=== PATIENT | male | born 1955 | race Caucasian/White ===

== ENCOUNTER 2017-05-21 06:14 | Day surgery (SDC) | payer OTHER ==
[~2017-05-21] VITALS: Ht 180.3 cm; Wt 93.2 kg
[2017-05-21] VITALS (8 sets, daily range): BP systolic 98–152; BP diastolic 54–84; PULSE 69–81; RESP 18–20; TEMP 97.8–97.9; O2SAT 92–97
[~2017-05-21 06:14] MED LIST: ASPI81 PO; ATEN1TAB73 PO; NIAS10004 PO; OXYC-360 PO; ZOCO40TA PO
[2017-05-21] MEDS ORDERED: OXYC1TAB63 PO (06:57)
[2017-05-21] MEDS ORDERED: ZOFR4TAB PO (06:57)
[2017-05-21] MEDS ORDERED: DOCU100C15 PO (06:57)
[2017-05-21] MEDS ORDERED: LISI10TA3 PO (06:57)
[2017-05-21] MEDS ORDERED: ATOR40TA16 PO (06:57)
[2017-05-21] MEDS ORDERED: ASPI81CH6 CHEW (06:57)
[2017-05-21] MEDS ORDERED: RANI150T PO (06:57)
[2017-05-21] MEDS ORDERED: SODIUM CHLORIDE 2 ML FLUSH PRN IV FLUSH (07:45)
[2017-05-21] MEDS ORDERED: SODIUM CHLOR 0.9% 1000 ML IV SCH (07:45)
[2017-05-21] MEDS ORDERED: LIDOCAINE HCL 1% 20 ML VIAL ONE (07:50)
[2017-05-21] MEDS ORDERED: MIDAZOLAM HCL 2 MG/2 ML VIAL ONE (07:58)
[2017-05-21] MEDS ORDERED: SODIUM CHLORIDE 2 ML FLUSH BID IV FLUSH SCH (09:00)
[2017-05-21] MEDS ORDERED: oxyCODONE/ACETAMINOPHEN 5 MG/325 MG TAB PO PRN (09:15)
--- NOTE | 2017-05-21 09:23 | PD.RAD ---
Post CT Procedure Prog Note Pre Procedure Diagnosis: (1) Bone metastases (2) Mass of left lung Post Procedure Diagnosis: (1) Bone metastases (2) Mass of left lung Procedure Date: May 21, 2017 Supervising Radiologist: Karsten Ames Anesthesia: Local, Conscious Sedation Plan of Activity Patient to Unit: ROPU Patient Condition: Good See PACS Report for procedural detail/treatment Biopsy Imaging Guidance: CT Side: Left Biopsy Procedure: Bone, Lung Site: Left ilium left lung mass Specimen: Core Biopsy, Fine Needle Aspirate Fluid Description: Bloody Findings: Karsten Ames MD May 21, 2017 09:23
--- NOTE | 2017-05-21 09:45 | RADRPT ---
EXAM DATE/TIME: 05/21/2017 08:29 [facility] COMPARISON: No previous studies available for comparison. INDICATIONS : Left lung mass. SEDATION TIME: 45 minutes BIOPSY SITE: Left MEDICATION(S): 1.) 4 mg midazolam (Versed) IV 2.) 200 mcg fentanyl (Sublimaze) IV DEVICE(S): 1.) 18 gauge Temno core biopsy needle MEDICAL HISTORY : None. SURGICAL HISTORY : None. ENCOUNTER: Initial ACUITY: 1 day PAIN SCORE: 5/10 LOCATION: Left chest A total of two core specimen(s) were obtained and sent to the laboratory for pathologic evaluation. PROCEDURE: 1. CT guided lung biopsy. 2. Conscious sedation with continuous EKG and oximetry monitoring. 3. EKG and oximetry remained stable throughout the procedure. Prior to the procedure informed consent was obtained. Any appropriate prior imaging studies were rev iewed. Using automated exposure control and adjustment of the mA and/or kV according to patient size, radiation dose was kept as low as reasonably achievable to obtain optimal diagnostic quality images. DICOM format image data is available electronically for review and comparison. The site was prepped in a sterile fashion. Full sterile technique was used, including cap, mask, heather rile gloves and gown and a large sterile sheet. Hand hygiene and 2% chlorhexidine and/or betadine/al cohol prep was utilized per protocol for cutaneous antisepsis. The skin and subcutaneous tissues wer e infiltrated with local anesthetic solution. With CT guidance the previously identified target was localized. Biopsy was performed using the presc ribed needle as above. Adequate hemostasis was obtained with compression at the puncture site. Follow-up CT scan reveals no pneumothorax. Conscious sedation was performed with the prescribed dosages and duration as above in the presence of an independent trained radiology nurse to assist in the monitoring of the patient. EKG and oximetry remained stable throughout the procedure. The patient tolerated the procedure well and there were no complications. The patient was sent to Radiology Outpatient Unit in stable condition. CONCLUSION: Uncomplicated CT guided biopsy of left lower lobe lung mass. Karsten Ames MD on May 21, 2017 at 9:42 Board Certified Radiologist. This report was verified electronically.
--- NOTE | 2017-05-21 09:45 | RADRPT ---
EXAM DATE/TIME: 05/21/2017 08:29 [facility] COMPARISON: No previous studies available for comparison. INDICATIONS : Left iliac lesion. SEDATION TIME: 45 minutes BIOPSY SITE: Left MEDICATION(S): 1.) 4 mg midazolam (Versed) IV 2.) 200 mcg fentanyl (Sublimaze) DEVICE(S): 1.) Bone biopsy needle 10 MEDICAL HISTORY : None. SURGICAL HISTORY : None. ENCOUNTER: Initial ACUITY: 1 day PAIN SCORE: 0/10 LOCATION: Left pelvis A total of two core specimen(s) were obtained and sent to the laboratory for pathologic evaluation. PROCEDURE: 1. CT guided pelvic biopsy. 2. Conscious sedation with continuous EKG and oximetry monitoring. 3. EKG and oximetry remained stable throughout the procedure. Prior to the procedure informed consent was obtained. Any appropriate prior imaging studies were rev iewed. Using automated exposure control and adjustment of the mA and/or kV according to patient size, radiat ion dose was kept as low as reasonably achievable to obtain optimal diagnostic quality images. DICOM format image data is available electronically for review and comparison. The site was prepped in a sterile fashion. Full sterile technique was used, including cap, mask, heather rile gloves and gown and a large sterile sheet. Hand hygiene and 2% chlorhexidine and/or betadine/al cohol prep was utilized per protocol for cutaneous antisepsis. The skin and subcutaneous tissues wer e infiltrated with local anesthetic solution. With CT guidance the previously identified target was localized. Biopsy was performed using the presc ribed needle as above. Adequate hemostasis was obtained with compression at the puncture site. Follow-up CT scan reveals no hemorrhage. The patient tolerated the procedure well and there were no complications. The patient was returned to the Radiology Outpatient Unit in stable condition. CONCLUSION: Uncomplicated CT guided biopsy of the left ilium. Karsten Ames MD on May 21, 2017 at 9:42 Board Certified Radiologist. This report was verified electronically.
--- NOTE | 2017-05-21 10:18 | RADRPT ---
EXAM DATE/TIME: 05/21/2017 09:24 [facility] COMPARISON: CT NEEDLE BIOPSY LUNG, LEFT, May 21, 2017, 8:29. INDICATIONS : Post left side chest biopsy. MEDICAL HISTORY : None. SURGICAL HISTORY : CABG. ENCOUNTER: Initial ACUITY: 1 day PAIN SCORE: 0/10 LOCATION: Bilateral chest FINDINGS: Single expiratory view of the chest was performed. No evidence for pneumothorax status post left lung biopsy. Redemonstration of focal airspace consolidation in the left lung base. Cardiomediastinal con tours are within normal limits with postsurgical features noted. Expansile mixed lesion involving a p osterior right rib is not well demonstrated on this radiograph. CONCLUSION: 1. No significant pneumothorax status post left lung mass biopsy. Nakul Walker MD on May 21, 2017 at 10:12 Board Certified Radiologist. This report was verified electronically.
== END 2017-05-21 13:17 | disposition home or self-care (01) ==
LOC: HRAD 06:14 → HRIP 06:15 → HRAD 13:17
PROVIDERS: ATTEND Family Medicine
DX: C79.51 Secondary malignant neoplasm of bone (principal); C34.90 Malignant neoplasm of unspecified part of unspecified bronchus or lung
CPT/HCPCS: 20220; 32405; 71045; 77012; 88305; 88341; 88342; 99152; 99153; C1830; J2250; J3010; J7030

== ENCOUNTER 2017-06-26 07:44 | Day surgery (SDC) | payer OTHER ==
[~2017-06-26 07:44] MED LIST changes: -ASPI81 PO; +ASPI81CH6 CHEW; -ATEN1TAB73 PO; +ATOR40TA16 PO; +DOCU100C15 PO; +LISI10TA3 PO; -NIAS10004 PO; -OXYC-360 PO; +OXYC1TAB63 PO; +RANI150T PO; -ZOCO40TA PO; +ZOFR4TAB PO
[2017-06-26 08:19] VITALS: BP 81/64; PULSE 85; RESP 18; TEMP 97.3; O2SAT 93
[2017-06-26 09:15] VITALS: BP 88/60; PULSE 74; RESP 20; TEMP 97.8; O2SAT 92
--- NOTE | 2017-06-26 09:24 | RADRPT ---
EXAM DATE/TIME: 06/26/2017 09:07 [facility] COMPARISON: CHEST EXPIRATION ONLY, May 21, 2017, 9:24. INDICATIONS : Status post left thoracentesis MEDICAL HISTORY : Hypercholesterolemia. SURGICAL HISTORY : CABG. ENCOUNTER: Initial ACUITY: 1 day PAIN SCORE: 0/10 LOCATION: Bilateral chest FINDINGS: A single portable frontal view of the chest shows a moderate-sized left pleural effusion. No effusion on the right. Consolidation involving the left lung. Right lung is clear. Heart is mildly enlarged. Median sternotomy wires and coronary markers noted. No pneumothorax seen. CONCLUSION: 1. Moderate-sized left effusion despite left thoracentesis. 2. No pneumothorax. 3. Consolidation involving the left lung. Diaz Weeks Jr., MD on June 26, 2017 at 9:21 Board Certified Radiologist. This report was verified electronically.
[2017-06-26 09:30] VITALS: BP 92/62; PULSE 72; RESP 20; O2SAT 95
[2017-06-26 09:45] VITALS: BP 95/63; PULSE 70; RESP 20; O2SAT 95
--- NOTE | 2017-06-26 11:22 | RADRPT ---
EXAM DATE/TIME: 06/26/2017 08:13 [facility] COMPARISON: No previous studies available for comparison. INDICATIONS : Left pleural effusion. MEDICAL HISTORY : Hypercholesterolemia. Hypertension. Gastroesophageal reflux disease. Left pleural effusion. SURGICAL HISTORY : Tonsillectomy. CABG ENCOUNTER: Initial ACUITY: 1 day PAIN SCORE: 3/10 LOCATION: Left chest FLUID: Total volume of 2400 cc of clear, red fluid was removed. Fluid was discarded. Thoracentesis was therapeutic only. TECHNIQUE: 1. Ultrasound guidance for thoracentesis. 2. Thoracentesis. The risks, benefits, and alternatives to ultrasound guided thoracentesis were explained to the patien t in lay simple terms, including the risk of bleeding and infection. Written and verbal informed con sent was obtained. Appropriate area for thoracentesis was marked under ultrasound guidance with the patient in the uprig ht position. Overlying skin was prepped and draped in the usual sterile fashion and with local anest hetic, a dermatotomy was made with an 11 blade scalpel. A 6 Nigerian thoracentesis catheter was placed in the pleural space and fluid was removed. Catheter was then removed and a sterile dressing applie d. There were no immediate complications. The patient tolerated the procedure well and the left the ultrasound suite in stable condition. Chest radiograph is to be obtained. CONCLUSION: Uncomplicated ultrasound guided thoracentesis. Nakul Walker MD on June 26, 2017 at 11:19 Board Certified Radiologist. This report was verified electronically.
== END 2017-06-26 12:30 | disposition home or self-care (01) ==
LOC: HRAD 07:44 → HRIP 07:45 → HRAD 12:30
PROVIDERS: ATTEND Internal Medicine Hematology & Oncology
DX: J90 Pleural effusion, not elsewhere classified (principal); C34.32 Malignant neoplasm of lower lobe, left bronchus or lung; E78.00 Pure hypercholesterolemia, unspecified; I10 Essential (primary) hypertension; K21.9 Gastro-esophageal reflux disease without esophagitis; Z95.1 Presence of aortocoronary bypass graft
CPT/HCPCS: 32555; 71045; C1729

== ENCOUNTER 2017-07-26 15:40 | Inpatient (IN) | payer OTHER ==
[~2017-07-26] VITALS: Ht 180.3 cm; Wt 83.7 kg
[2017-07-26 15:44] VITALS: BP 103/69; PULSE 106; RESP 18; TEMP 98.8; O2SAT 92
[2017-07-26 15:58] VITALS: O2SAT 92
[2017-07-26] MEDS ORDERED: PROM25TA10 PO (15:59)
[2017-07-26] MEDS ORDERED: DABR75CA PO (15:59)
[2017-07-26] MEDS ORDERED: MORP1TAB25 PO (15:59)
[2017-07-26] MEDS ORDERED: OXYC-395 PO (15:59)
[2017-07-26] MEDS ORDERED: TRAM2TAB (15:59)
[2017-07-26 16:05] VITALS: BP 106/71; PULSE 101; RESP 15; TEMP 102.3; O2SAT 96
[2017-07-26] MEDS ORDERED: SODIUM CHLOR 0.9% 1000 ML INJ 1,000 ML IV ONE ×2 (16:10→17:34)
[2017-07-26] MEDS ORDERED: ONDANSETRON HCL 4 MG/2 ML VIAL IV PUSH ONE (16:15)
[2017-07-26] MEDS ORDERED: ACETAMINOPHEN 325 MG TAB PO ONE (16:15)
[2017-07-26] MEDS ORDERED: SODIUM CHLORIDE 0.9% FLUSH 10 ML FLUSH IVF PRN (16:15)
--- NOTE | 2017-07-26 16:26 | PD ---
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 Patient states that his fevers been up to 104.3 and have not been completely resolved with Tylenol. Says he has nausea, vomiting, and cough the patient does have lung cancer and he is unsure if this is related to his cancer or new process. States that he has felt nauseous with vomiting for the last 5 weeks since starting his chemo medication. He denies hematochezia, melena, hematemesis. states that his oxygen is usually about 90% at home but today he dropped down to 80% on room air patient is not normally on oxygen at home. Patient says he had a CABG 10 years ago and a stress test about a year ago which was normal. Patient is not currently follow cardiology. Says he is due for a thoracentesis tomorrow however, because of his fever the recommended he come to the emergency department today for evaluation. His oncologist is Dr. Ross. Dr. Hand is his primary care physician. PFSH Past Medical History Asthma: No Blood Disorders: No Heart Rhythm Problems: Yes Cancer: No Cardiovascular Problems: Yes (cad) High Cholesterol: Yes Chemotherapy: No Chest Pain: Yes Congestive Heart Failure: No COPD: No Coronary Artery Disease: Yes Diabetes: No Endocrine: No GERD: Yes Glaucoma: No Genitourinary: No Hepatitis: No Hiatal Hernia: No Hypertension: Yes Immune Disorder: No Medical other: Yes (back and neck problems) Musculoskeletal: No Neurologic: No Psychiatric: No Reproductive: No Respiratory: No Immunizations Current: Yes Myocardial Infarction: No Radiation Therapy: No Sleep Apnea: No Thyroid Disease: No Ulcer: No Tetanus Vaccination: Unknown Influenza Vaccination: No Past Surgical History Abdominal Surgery: No AICD: No Appendectomy: No Arteriovenous Shunt: No Cardiac Surgery: Yes (quad vessel by-pass) Cholecystectomy: No Coronary Artery Bypass Graft: Yes Ear Surgery: No Endocrine Surgery: No Eye Surgery: No Genitourinary Surgery: No Gynecologic Surgery: No Insulin Pump: No Joint Replacement: No Oral Surgery: Yes (tonsillectomy) Pacemaker: No Thoracic Surgery: No Tonsillectomy: Yes Social History Alcohol Use: Yes (beer a couple of times per week) Tobacco Use: No Substance Use: No Allergies-Medications (Allergen,Severity, Reaction): Coded Allergies: diphenhydramine (Unverified Allergy, Severe, Anaphylaxis, 07/26/17) patient denies allergy Reported Meds & Prescriptions Reported Meds & Active Scripts Active Reported Phenergan (Promethazine HCl) 25 Mg Tablet 25 Mg PO Q6H PRN Morphine ER (Morphine Sulfate) 30 Mg Tab 30 Mg PO BID Oxycodone (Oxycodone HCl) 10 Mg Tab 10 Mg PO Q6H PRN Tafinlar (Dabrafenib) 75 Mg Cap 150 Mg PO BID Tafinlar (Dabrafenib) 75 Mg Cap 75 Mg PO BID Mekinist (Trametinib Dimethyl Sulfoxide) 2 Mg Tablet Zofran (Ondansetron HCl) 4 Mg Tab 4 Mg PO Q6HR PRN Docusate Sodium 100 Mg Cap 100 Mg PO BID PRN Atorvastatin (Atorvastatin Calcium) 40 Mg Tab 40 Mg PO HS Aspirin Low Dose (Aspirin) 81 Mg Chew 81 Mg CHEW HS Lisinopril 10 Mg Tab 10 Mg PO HS Ranitidine (Ranitidine HCl) 150 Mg Tab 150 Mg PO HS Review of Systems Except as stated in HPI: all other systems reviewed are Neg Physical Exam Narrative GENERAL: Well-developed, well-nourished in no apparent distress SKIN: Focused skin assessment warm/dry. HEAD: Atraumatic. Normocephalic. EYES: Pupils equal and round. No scleral icterus. No injection or drainage. ENT: No nasal bleeding or discharge. Mucous membranes pink and moist. NECK: Trachea midline. No JVD. No lymphadenopathy CARDIOVASCULAR: Regular rate and rhythm. No murmur appreciated. RESPIRATORY: No accessory muscle use. Clear to auscultation. Breath sounds equal bilaterally. GASTROINTESTINAL: Abdomen soft, non-tender, nondistended. Hepatic and splenic margins not palpable. MUSCULOSKELETAL: No obvious deformities. No clubbing. No cyanosis. No edema. Homans sign negative bilaterally NEUROLOGICAL: Awake and alert. No obvious cranial nerve deficits. Motor grossly within normal limits. Normal speech. PSYCHIATRIC: Appropriate mood and affect; insight and judgment normal. Data Data Last Documented VS Vital Signs Date Time Temp Pulse Resp B/P (MAP) Pulse Ox O2 Delivery O2 Flow Rate FiO2 07/26/17 18:07 98.3 87 18 106/67 (80) 98 Nasal Cannula 2.00 Orders Orders Complete Blood Count With Diff (07/26/17 16:10) Comprehensive Metabolic Panel (07/26/17 16:10) Act Partial Throm Time (Ptt) (07/26/17 16:10) Prothrombin Time / Inr (Pt) (07/26/17 16:10) Magnesium (Mg) (07/26/17 16:10) Ckmb (Isoenzyme) Profile (07/26/17 16:10) Troponin I (07/26/17 16:10) Urinalysis - C+S If Indicated (07/26/17 16:10) Influenzae A/B Antigen (07/26/17 16:10) Blood Culture (07/26/17 16:10) Electrocardiogram (07/26/17 16:10) Chest, Pa & Lat (07/26/17 16:10) Sepsis Workup Initiated (07/26/17 ) Lactic Acid Sepsis Protocol (07/26/17 16:10) Blood Glucose (07/26/17 16:10) Ecg Monitoring (07/26/17 16:10) Iv Access Insert/Monitor (07/26/17 16:10) Oximetry (07/26/17 16:10) Oxygen Administration (07/26/17 16:10) Acetaminophen (Tylenol) (07/26/17 16:15) Ondansetron Inj (Zofran Inj) (07/26/17 16:15) Sodium Chlor 0.9% 1000 Ml Inj (Ns 1000 M (07/26/17 16:10) Sodium Chloride 0.9% Flush (Ns Flush) (07/26/17 16:15) CKMB (07/26/17 16:24) CKMB% (07/26/17 16:24) Electrocardiogram (07/26/17 ) Sodium Chlor 0.9% 1000 Ml Inj (Ns 1000 M (07/26/17 17:34) Sodium Chlorid 0.9% 500 Ml Inj (Ns 500 M (07/26/17 17:45) Ct Thorax/ Chest Wo Iv Contras (07/26/17 ) Vancomycin Inj (Vancomycin Inj) (07/26/17 18:00) Cefepime Inj (Maxipime Inj) (07/26/17 18:00) Admit Order (Ed Use Only) (07/26/17 18:05) Diet Regular Basic (07/26/17 Dinner) Phosphorus (Po4) (07/26/17 16:24) Uric Acid (07/26/17 16:24) Labs Laboratory Tests Test 07/26/17 16:16 07/26/17 16:23 07/26/17 16:24 Urine Color DARK-YELLOW Urine Turbidity HAZY Urine pH 6.0 Urine Specific [place] 1.035 Urine Protein 100 mg/dL Urine Glucose (UA) NEG mg/dL Urine Ketones 10 mg/dL Urine Occult Blood SMALL Urine Nitrite NEG Urine Bilirubin NEG Urine Urobilinogen 8.0 MG/DL Urine Leukocyte Esterase NEG Urine RBC 30 /hpf Urine WBC 5 /hpf Urine Squamous Epithelial Cells 1 /hpf Urine Mucus MANY /lpf Microscopic Urinalysis Comment CULT NOT INDICATED Lactic Acid Level 2.1 mmol/L White Blood Count 3.7 TH/MM3 Red Blood Count 4.57 MIL/MM3 Hemoglobin 13.1 GM/DL Hematocrit 38.9 % Mean Corpuscular Volume 85.2 FL Mean Corpuscular Hemoglobin 28.6 PG Mean Corpuscular Hemoglobin Concent 33.6 % Red Cell Distribution Width 14.2 % Platelet Count 186 TH/MM3 Mean Platelet Volume 8.8 FL Neutrophils (%) (Auto) 74.8 % Lymphocytes (%) (Auto) 14.3 % Monocytes (%) (Auto) 10.2 % Eosinophils (%) (Auto) 0.0 % Basophils (%) (Auto) 0.7 % Neutrophils # (Auto) 2.8 TH/MM3 Lymphocytes # (Auto) 0.5 TH/MM3 Monocytes # (Auto) 0.4 TH/MM3 Eosinophils # (Auto) 0.0 TH/MM3 Basophils # (Auto) 0.0 TH/MM3 CBC Comment DIFF FINAL Differential Comment Prothrombin Time 11.7 SEC Prothromb Time International Ratio 1.2 RATIO Activated Partial Thromboplast Time 31.5 SEC Blood Urea Nitrogen 14 MG/DL Creatinine 1.11 MG/DL Random Glucose 147 MG/DL Total Protein 7.3 GM/DL Albumin 3.0 GM/DL Calcium Level 7.7 MG/DL Phosphorus Level 1.5 MG/DL Magnesium Level 2.1 MG/DL Uric Acid 3.0 MG/DL Alkaline Phosphatase 182 U/L Aspartate Amino Transf (AST/SGOT) 55 U/L Alanine Aminotransferase (ALT/SGPT) 28 U/L Total Bilirubin 0.6 MG/DL Sodium Level 137 MEQ/L Potassium Level 3.8 MEQ/L Chloride Level 101 MEQ/L Carbon Dioxide Level 26.3 MEQ/L Anion Gap 10 MEQ/L Estimat Glomerular Filtration Rate 68 ML/MIN Total Creatine Kinase 124 U/L Creatine Kinase MB 0.5 NG/ML Troponin I LESS THAN 0.02 NG/ML MDM Medical Decision Making Medical Screen Exam Complete: Yes Emergency Medical Condition: Yes Differential Diagnosis Neutropenic fever, influenza, pneumonia, sepsis Narrative Course 62-year-old male with history of metastatic adenocarcinoma number of the lung presents emergency room with concerns of fevers that have been up to 104.3. He is due to have a thoracentesis tomorrow however, because of his fever he was advised to come to the emergency department today for evaluation. Vital signs temperature 102.3, heart rate 101, blood pressure 106/71, SaO2 96% on 2 L/min. (initially 92% on room air) EKG shows sinus tachycardia at a rate of 100 without STEMI changes. minimal biphasic T waves in V2-3. Last Impressions Chest X-Ray 07/26/17 1610 Signed Impressions: Service Date/Time: July 16:21 - CONCLUSION: Atelectasis, infiltrate and/or scarring within the left lung base. Elevation of the left hemidiaphragm. Chay Mackay MD CBC & BMP Diagram 07/26/17 16:24 Total Protein 7.3, Albumin 3.0 L, Calcium Level 7.7 L, Magnesium Level 2.1, Alkaline Phosphatase 182 H, Aspartate Amino Transf (AST/SGOT) 55 H, Alanine Aminotransferase (ALT/SGPT) 28, Total Bilirubin 0.6 Lactic 2.1, negative cardiac enzymes, PT/INR/APTT 11.7/1.2/31.5 UA is not an obvious source for sepsis. Influenza negative. Sepsis protocol initiated- a total of 2500 cc normal saline IV bolus, 650 mg Tylenol, 4 mg Zofran administered Phosphorus and uric acid labs added for concern of possible tumor lysis syndrome. Uric acid 3.0, phosphorus 1.5 Review of the EMR. Previous chest x-ray dated June 26, 2017 demonstrated a large pleural effusion which required thoracentesis. It appears he also had a pelvic bone biopsy in May. I spoke with Dr. Ross, his oncologist to recommended 2 g cefepime and 1.25 g vancomycin. He also recommended a CT chest without contrast. He also recommended recommended blood cultures from port and periphery. Patient does not have a port. Blood cultures were drawn prior to interventions today. I spoke Dr. Tavarez who agreed to the admission. He requested I place the admission under Dr. More. CT chest and antibiotic administration pending as of admission. Sepsis Criteria SIRS Criteria (2 or more): Temp > 100.9 or < 96.8, Heart rate over 90 Diagnosis Primary Impression: Sepsis Qualified Codes: A41.9 - Sepsis, unspecified organism Admitting Information Admitting Physician Requests: Admit Condition: Stable Sally Monsalve Jul 26, 2017 16:26
--- NOTE | 2017-07-26 16:44 | RADRPT ---
EXAM DATE/TIME: 07/26/2017 16:21 [facility] COMPARISON: CT NEEDLE BIOPSY LUNG, LEFT, May 21, 2017, 8:29. US GUIDED THORACENTESIS LEFT, June 26, 2017 , 8:13. CHEST EXPIRATION ONLY, May 21, 2017, 9:24. INDICATIONS : Short of breath MEDICAL HISTORY : Hypercholesterolemia. SURGICAL HISTORY : CABG. ENCOUNTER: Initial ACUITY: 3 days PAIN SCORE: 3/10 LOCATION: Left chest FINDINGS: Atelectasis, infiltrate and/or scarring is noted within the left lung base. Median sternotomy wires a re noted status post cardiac surgery. The right lung is clear. No pulmonary edema is noted. There is elevation of the left hemidiaphragm. CONCLUSION: Atelectasis, infiltrate and/or scarring within the left lung base. Elevation of the left hemidiaphrag mMarlyn Mackay MD on July 26, 2017 at 16:39 Board Certified Radiologist. This report was verified electronically.
[2017-07-26 17:01] LABS: AUTOMATED NEUTROPHIL # 2.8 TH/MM3 (1.8-7.7); BASOPHIL % 0.7 % (0.0-2.0); HEMATOCRIT 38.9 % (39.0-51.0); HEMOGLOBIN 13.1 GM/DL (13.0-17.0); LYMPH % 14.3 % (9.0-44.0); LYMPHOCYTE # 0.5 TH/MM3 (1.0-4.8); MEAN CELL VOLUME 85.2 FL (80.0-100.0); MEAN CORPUSCULAR HEMOGLOBIN 28.6 PG (27.0-34.0); MEAN CORPUSCULAR HGB CONC 33.6 % (32.0-36.0); MEAN PLATELET VOLUME 8.8 FL (7.0-11.0); MONO % 10.2 % (0.0-8.0); MONOCYTE # 0.4 TH/MM3 (0-0.9); NEUT % 74.8 % (16.0-70.0); PLATELET COUNT 186 TH/MM3 (150-450); RED BLOOD COUNT 4.57 MIL/MM3 (4.50-5.90); RED CELL DISTRIBUTION WIDTH 14.2 % (11.6-17.2); WHITE BLOOD COUNT 3.7 TH/MM3 (4.0-11.0)
[2017-07-26 17:19] LABS: BILIRUBIN, URINE NEG (NEG); BLOOD, URINE SMALL (NEG); GLUCOSE,URINE NEG (NEG); KETONE, URINE 10 mg/dL (NEG); MUCUS URINE MANY /lpf (OCC); NITRITE,URINE NEG (NEG); SQUAMOUS EPITHELIAL CELL URINE 1 /hpf (0-5); URINE COLOR DARK-YELLOW (YELLW/STRAW); URINE LEUKOCYTE ESTERASE NEG (NEG)
[2017-07-26 17:24] LABS: ALT (GPT) 28 U/L (12-78); AST (GOT) 55 U/L (15-37); BICARBONATE 26.3 MEQ/L (21.0-32.0); BLOOD UREA NITROGEN 14 MG/DL (7-18); CALCIUM 7.7 MG/DL (8.5-10.1); CHLORIDE 101 MEQ/L (98-107); CREATININE 1.11 MG/DL (0.60-1.30); GLOMERULAR FILTRATION RATE 68 ML/MIN (>89); GLUCOSE,RANDOM 147 MG/DL (74-106); MAGNESIUM 2.1 MG/DL (1.5-2.5); SODIUM (NA) 137 MEQ/L (136-145)
[2017-07-26 17:27] LABS: INTERNATIONAL NORMALIZED RATIO 1.2 RATIO; PROTHROMBIN TIME - PATIENT 11.7 SEC (9.8-11.6)
[2017-07-26 17:28] LABS: LACTIC ACID SEPSIS PROTOCOL 2.1 mmol/L (0.4-2.0)
[2017-07-26 17:36] LABS: ALKALINE PHOSPHATASE 182 U/L (45-117); TOTAL BILIRUBIN ADULT 0.6 MG/DL (0.2-1.0); TOTAL PROTEIN 7.3 GM/DL (6.4-8.2); TROPONIN I LESS THAN 0.02 NG/ML (0.02-0.05)
[2017-07-26] MEDS ORDERED: SODIUM CHLORID 0.9% 500 ML INJ 500 ML IV ONE (17:45)
[2017-07-26 18:00] VITALS: BP 117/73; PULSE 108; RESP 17; TEMP 99.6; O2SAT 97
[2017-07-26] MEDS ORDERED: CEFEPIME INJ 2,000 MG in SODIUM CHLORIDE 0.9% INJ 100 ML IV ONE (18:00)
[2017-07-26] MEDS ORDERED: VANCOMYCIN INJ 1,250 MG in SODIUM CHLOR 0.9% 250 ML INJ 250 ML IV ONE (18:00)
[2017-07-26 18:07] VITALS: BP 106/67; PULSE 87; RESP 18; TEMP 98.3; O2SAT 98
[2017-07-26 18:28] LABS: PHOSPHORUS 1.5 MG/DL (2.5-4.9)
--- NOTE | 2017-07-26 19:09 | RADRPT ---
EXAM DATE/TIME: 07/26/2017 18:43 [facility] COMPARISON: CT NEEDLE BIOPSY LUNG, LEFT, May 21, 2017, 8:29. INDICATIONS : Shortness of breath with fever. RADIATION DOSE: 13.23 CTDIvol (mGy) MEDICAL HISTORY : Cardiovascular disease. Adenocarcinoma. SURGICAL HISTORY : CABG ENCOUNTER: Initial ACUITY: 1 day PAIN SCALE: 0/10 LOCATION: chest TECHNIQUE: Volumetric scanning of the chest was performed. Using automated exposure control and adjustment of t he mA and/or kV according to patient size, radiation dose was kept as low as reasonably achievable to obtain optimal diagnostic quality images. DICOM format image data is available electronically for r eview and comparison. Follow-up recommendations for detected pulmonary nodules are based at a minimum on nodule size and pa tient risk factors according to Fleischner Society Guidelines. FINDINGS: There is a large left pleural effusion. There is atelectasis of the left lung, mostly the lower lobe. Trace atelectasis dependently in the right lung base. No pneumothorax. No pathologic appearing adenopathy. Patient has had previous median sternotomy and C ABG. Mixed lytic and sclerotic changes are seen of the T8 and T12 vertebral bodies. There are expansile le sions of the right 10th and 11th ribs posteriorly. There is subchondral sclerotic area of the left hu meral head which may be AVN or a metastasis. CONCLUSION: 1. Large left pleural effusion with mild to moderate atelectasis of the left lower lobe. 2. Mild atelectasis right lung base. 3. Apparent bony metastatic disease, most conspicuous T8 and T12 vertebral bodies and posteriorly of the right 10th and 11th ribs. Possible metastatic lesion of the left humeral head. Alex Rader MD on July 26, 2017 at 19:02 Board Certified Radiologist. This report was verified electronically.
[2017-07-26] MEDS ORDERED: Vancomycin Consult Pharmacy 1 EA OTHER SCH (19:15)
[2017-07-26] MEDS ORDERED: NALOXONE HCL 0.4 MG/ML AMP IV PUSH PRN (19:15)
[2017-07-26] MEDS ORDERED: DOCUSATE SODIUM 100 MG CAP PO PRN (19:15)
[2017-07-26] MEDS ORDERED: MORPHINE SULFATE 2 MG/ML INJ IV PUSH PRN (19:15)
[2017-07-26] MEDS ORDERED: SENNOSIDES 8.6 MG TAB PO PRN (19:15)
[2017-07-26] MEDS ORDERED: LACTULOSE SYRUP 20 GM/30 ML CUP PO PRN (19:15)
[2017-07-26] MEDS ORDERED: ONDANSETRON HCL 4 MG/2 ML VIAL IVP PRN (19:15)
[2017-07-26] MEDS ORDERED: SODIUM CHLORIDE 0.9% FLUSH 10 ML FLUSH IV FLUSH PRN (19:15)
[2017-07-26] MEDS ORDERED: BISACODYL 10 MG SUPP RECTAL PRN (19:15)
[2017-07-26] MEDS ORDERED: MAGNESIUM HYDROXIDE SUSP 30 ML CUP PO PRN (19:15)
--- NOTE | 2017-07-26 19:26 | HHI.HP ---
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 Patient states that his fevers been up to 104.3 and have not been completely resolved with Tylenol. Says he has nausea, vomiting, and cough the patient does have lung cancer and he is unsure if this is related to his cancer or new process. States that he has felt nauseous with vomiting for the last 5 weeks since starting his chemo medication. He denies hematochezia, melena, hematemesis. states that his oxygen is usually about 90% at home but today he dropped down to 80% on room air patient is not normally on oxygen at home. Patient says he had a CABG 10 years ago and a stress test about a year ago which was normal. Patient is not currently follow cardiology. Says he is due for a thoracentesis tomorrow however, because of his fever the recommended he come to the emergency department today for evaluation. His oncologist is Dr. Ross who recommended CT thorax start cefipine and vancomycin sepsis work up . Review of Systems Constitutional: COMPLAINS OF: Fatigue, Fever, Chills Gastrointestinal: COMPLAINS OF: Nausea, Vomiting Past Family Social History Past Medical History hyperlipidemia-metastatic cancer lung,cad,hypertension djd Past Surgical History tonsil cabs Reported Medications Phenergan (Promethazine HCl) 25 Mg Tablet 25 Mg PO Q6H PRN Morphine ER (Morphine Sulfate) 30 Mg Tab 30 Mg PO BID Oxycodone (Oxycodone HCl) 10 Mg Tab 10 Mg PO Q6H PRN Tafinlar (Dabrafenib) 75 Mg Cap 150 Mg PO BID Tafinlar (Dabrafenib) 75 Mg Cap 75 Mg PO BID Mekinist (Trametinib Dimethyl Sulfoxide) 2 Mg Tablet Zofran (Ondansetron HCl) 4 Mg Tab 4 Mg PO Q6HR PRN Docusate Sodium 100 Mg Cap 100 Mg PO BID PRN Atorvastatin (Atorvastatin Calcium) 40 Mg Tab 40 Mg PO HS Aspirin Low Dose (Aspirin) 81 Mg Chew 81 Mg CHEW HS Lisinopril 10 Mg Tab 10 Mg PO HS Ranitidine (Ranitidine HCl) 150 Mg Tab 150 Mg PO HS Allergies: Coded Allergies: diphenhydramine (Unverified Allergy, Severe, Anaphylaxis, 07/26/17) patient denies allergy Social History current NS ND Physical Exam Vital Signs Vital Signs Date Time Temp Pulse Resp B/P (MAP) Pulse Ox O2 Delivery O2 Flow Rate FiO2 07/26/17 18:07 98.3 87 18 106/67 (80) 98 Nasal Cannula 2.00 07/26/17 18:00 99.6 108 17 117/73 (88) 97 Nasal Cannula 2.00 07/26/17 16:53 Nasal Cannula 2.00 07/26/17 16:05 102.3 101 15 106/71 (83) 96 Nasal Cannula 2.00 07/26/17 15:58 92 Room Air 07/26/17 15:44 98.8 106 18 103/69 (80) 92 Physical Exam GENERAL: This is a well-nourished, well-developed patient, in no apparent distress. SKIN: No rashes, ecchymoses or lesions. Cool and dry. HEAD: Atraumatic. Normocephalic. No temporal or scalp tenderness. EYES: Pupils equal round and reactive. Extraocular motions intact. No scleral icterus. No injection or drainage. ENT: Nose without bleeding, purulent drainage or septal hematoma. Throat without erythema, tonsillar hypertrophy or exudate. Uvula midline. Airway patent. NECK: Trachea midline. No JVD or lymphadenopathy. Supple, nontender, no meningeal signs. CARDIOVASCULAR: Regular rate and rhythm without murmurs, gallops, or rubs. RESPIRATORY: Decrease breath sounds rales left lower lung GASTROINTESTINAL: Abdomen soft, non-tender, nondistended. No hepato-splenomegaly , or palpable masses. No guarding. MUSCULOSKELETAL: Extremities without clubbing, cyanosis, or edema. No joint tenderness, effusion, or edema noted. No calf tenderness. Negative Homans sign bilaterally. NEUROLOGICAL: Awake and alert. Cranial nerves II through XII intact. Motor and sensory grossly within normal limits. Five out of 5 muscle strength in all muscle groups. Normal speech. Laboratory Laboratory Tests Test 07/26/17 16:16 07/26/17 16:23 07/26/17 16:24 Urine Color DARK-YELLOW Urine Turbidity HAZY Urine pH 6.0 Urine Specific [place] 1.035 Urine Protein 100 Urine Glucose (UA) NEG Urine Ketones 10 Urine Occult Blood SMALL Urine Nitrite NEG Urine Bilirubin NEG Urine Urobilinogen 8.0 Urine Leukocyte Esterase NEG Urine RBC 30 Urine WBC 5 Urine Squamous Epithelial Cells 1 Urine Mucus MANY Microscopic Urinalysis Comment CULT NOT INDICATED Lactic Acid Level 2.1 White Blood Count 3.7 Red Blood Count 4.57 Hemoglobin 13.1 Hematocrit 38.9 Mean Corpuscular Volume 85.2 Mean Corpuscular Hemoglobin 28.6 Mean Corpuscular Hemoglobin Concent 33.6 Red Cell Distribution Width 14.2 Platelet Count 186 Mean Platelet Volume 8.8 Neutrophils (%) (Auto) 74.8 Lymphocytes (%) (Auto) 14.3 Monocytes (%) (Auto) 10.2 Eosinophils (%) (Auto) 0.0 Basophils (%) (Auto) 0.7 Neutrophils # (Auto) 2.8 Lymphocytes # (Auto) 0.5 Monocytes # (Auto) 0.4 Eosinophils # (Auto) 0.0 Basophils # (Auto) 0.0 CBC Comment DIFF FINAL Differential Comment Prothrombin Time 11.7 Prothromb Time International Ratio 1.2 Activated Partial Thromboplast Time 31.5 Blood Urea Nitrogen 14 Creatinine 1.11 Random Glucose 147 Total Protein 7.3 Albumin 3.0 Calcium Level 7.7 Phosphorus Level 1.5 Magnesium Level 2.1 Uric Acid 3.0 Alkaline Phosphatase 182 Aspartate Amino Transf (AST/SGOT) 55 Alanine Aminotransferase (ALT/SGPT) 28 Total Bilirubin 0.6 Sodium Level 137 Potassium Level 3.8 Chloride Level 101 Carbon Dioxide Level 26.3 Anion Gap 10 Estimat Glomerular Filtration Rate 68 Total Creatine Kinase 124 Creatine Kinase MB 0.5 Troponin I LESS THAN 0.02 Date/Time Source Procedure Growth Status 07/26/17 14:27 Blood Peripheral Aerobic Blood Culture Pending Received 07/26/17 14:27 Blood Peripheral Anaerobic Blood Culture Pending Received 07/26/17 16:45 Nasal Aspirate Influenza Types A,B Antigen (KAPIL) - Final NEGATIVE FOR FLU A AND B ANTIGEN.... Complete Result Diagram: 07/26/17 1624 07/26/17 1624 Imaging Last 24 hours Impressions Chest X-Ray 07/26/17 1610 Signed Impressions: Service Date/Time: July 16:21 - CONCLUSION: Atelectasis, infiltrate and/or scarring within the left lung base. Elevation of the left hemidiaphragm. Chay Mackay MD Course in er started iv fluid and antibiotics Septic Shock Reassessment Septic shock perfusion: reassessment completed Caprini VTE Risk Assessment Caprini VTE Risk Assessment: Mod/High Risk (score >= 2) Caprini Risk Assessment Model Point Value = 1 Point Value = 2 Point Value = 3 Point Value = 5 Age 41-60 Minor surgery BMI > 25 kg/m2 Swollen legs Varicose veins or History of unexplained or recurrent spontaneous Oral contraceptives or hormone replacement Sepsis (< 1 month) Serious lung disease, including pneumonia (< 1 month) Abnormal pulmonary function Acute myocardial infarction Congestive heart failure (< 1 month) History of inflammatory bowel disease Medical patient at bed rest Age 61-74 Arthroscopic surgery Major open surgery (> 45 min) Laparoscopic surgery (> 45 min) Malignancy Confined to bed (> 72 hours) Immobilizing plaster cast Central venous access Age >= 75 History of VTE Family history of VTE Factor V Leiden Prothrombin [id number] Lupus anticoagulant Anticardiolipin antibodies Elevated serum homocysteine Heparin-induced thrombocytopenia Other congenital or acquired thrombophilia Stroke (< 1 month) Elective arthroplasty Hip, pelvis, or leg fracture Acute spinal cord injury (< 1 month) Prophylaxis Regimen Total Risk Factor Score Risk Level Prophylaxis Regimen 0-1 Low Early ambulation 2 Moderate Order ONE of the following: *Sequential Compression Device (SCD) *Heparin 5000 units SQ BID 3-4 Higher Order ONE of the following medications: *Heparin 5000 units SQ TID *Enoxaparin/Lovenox 40 mg SQ daily (WT < 150 kg, CrCl > 30 mL/min) *Enoxaparin/Lovenox 30 mg SQ daily (WT < 150 kg, CrCl > 10-29 mL/min) *Enoxaparin/Lovenox 30 mg SQ BID (WT < 150 kg, CrCl > 30 mL/min) AND/OR *Sequential Compression Device (SCD) 5 or more Highest Order ONE of the following medications: *Heparin 5000 units SQ TID (Preferred with Epidurals) *Enoxaparin/Lovenox 40 mg SQ daily (WT < 150 kg, CrCl > 30 mL/min) *Enoxaparin/Lovenox 30 mg SQ daily (WT < 150 kg, CrCl > 10-29 mL/min) *Enoxaparin/Lovenox 30 mg SQ BID (WT < 150 kg, CrCl > 30 mL/min) AND *Sequential Compression Device (SCD) Assessment and Plan Problem List: (1) Sepsis ICD Codes: A41.9 - Sepsis, unspecified organism Status: Acute Plan: start antibiotics sepsis workup CT thorax (2) Mass of left lung ICD Codes: R91.8 - Other nonspecific abnormal finding of lung field Status: Chronic Plan: consult oncology on chemo medication (3) Bone metastases ICD Codes: C79.51 - Secondary malignant neoplasm of bone Status: Chronic Plan: consult oncology Assessment and Plan as above patient BP low will hold lisinopril for now Code Status full Discussed Condition With patient Physician Certification 2 Midnight Certification Type: Admission for Inpatient Services Order for Inpatient Services The services are ordered in accordance with Medicare regulations or non- Medicare payer requirements, as applicable. In the case of services not specified as inpatient-only, they are appropriately provided as inpatient services in accordance with the 2-midnight benchmark. Estimated LOS (days): 3 3 days is the estimated time the patient will need to remain in the hospital, assuming treatment plan goals are met and no additional complications. Post-Hospital Plan: Not yet determined Problem Qualifiers (1) Sepsis: Qualified Codes: A41.9 - Sepsis, unspecified organism Saqib Tavarez MD Jul 26, 2017 19:26
[2017-07-26 21:00] VITALS: BP 112/74; PULSE 79; RESP 20; TEMP 97.6; O2SAT 97
[2017-07-26] MEDS ORDERED: LISINOPRIL 10 MG TAB PO SCH (21:00)
[2017-07-26] MEDS ORDERED: DABRAFENIB PO SCH (21:00)
[2017-07-26] MEDS ORDERED: VANCOMYCIN 1,000 MG/NS 250 ML IV ONE ×2 (21:00)
[2017-07-26] MEDS ORDERED: DABRAFENIB 75 MG PO SCH (21:00)
[2017-07-26] MEDS ORDERED: DIPH25CA PO (21:18)
[2017-07-26] MEDS: FAMOTIDINE 20 MG TAB PO SCH (22:11)
[2017-07-26] MEDS: ASPIRIN 81 MG CHEW TAB CHEW SCH (22:11)
[2017-07-26] MEDS: DOCUSATE SODIUM 50 MG/SENNA 8.6 MG TAB PO SCH (22:12)
[2017-07-26] MEDS: MORPHINE SULFATE 30 MG CONTROLLED RELEASE TAB PO SCH (22:12)
[2017-07-26] MEDS: SODIUM CHLORIDE 0.9% FLUSH 10 ML FLUSH IV FLUSH SCH (22:12)
[2017-07-26] MEDS: ATORVASTATIN 40 MG TAB PO SCH (22:12)
[2017-07-26] MEDS: 1/2 NS + KCL 20 MEQ INJ 1,000 ML IV SCH (22:20)
[2017-07-27] VITALS (9 sets, daily range): BP systolic 112–144; BP diastolic 75–95; PULSE 75–89; RESP 16–20; TEMP 97.3–99.4; O2SAT 96–98
[2017-07-27] MEDS: CEFEPIME INJ 1,000 MG in SODIUM CHLORIDE 0.9% INJ 100 ML IV SCH ×3 (01:28→17:34)
[2017-07-27 08:45] LABS: AUTOMATED NEUTROPHIL # 1.5 TH/MM3 (1.8-7.7); BASOPHIL % 0.4 % (0.0-2.0); EOSINOPHIL % 0.1 % (0.0-4.0); HEMATOCRIT 30.7 % (39.0-51.0); HEMOGLOBIN 10.4 GM/DL (13.0-17.0); LYMPHOCYTE # 0.6 TH/MM3 (1.0-4.8); MEAN CORPUSCULAR HEMOGLOBIN 28.6 PG (27.0-34.0); MEAN PLATELET VOLUME 8.8 FL (7.0-11.0); MONO % 14.1 % (0.0-8.0); MONOCYTE # 0.3 TH/MM3 (0-0.9); NEUT % 61.4 % (16.0-70.0); PLATELET COUNT 162 TH/MM3 (150-450); RED BLOOD COUNT 3.65 MIL/MM3 (4.50-5.90); RED CELL DISTRIBUTION WIDTH 14.1 % (11.6-17.2); WHITE BLOOD COUNT 2.5 TH/MM3 (4.0-11.0)
[2017-07-27] MEDS: SODIUM CHLORIDE 0.9% FLUSH 10 ML FLUSH IV FLUSH SCH ×2 (09:00→21:00)
[2017-07-27] MEDS: DOCUSATE SODIUM 50 MG/SENNA 8.6 MG TAB PO SCH ×2 (09:06→21:49)
[2017-07-27] MEDS: MORPHINE SULFATE 30 MG CONTROLLED RELEASE TAB PO SCH ×2 (09:06→21:48)
--- NOTE | 2017-07-27 09:25 | MB ---
cc: Tim Ross MD, Wesley J MD PhD DATE OF CONSULT: 07/26/2017 CONSULTATION REQUESTED BY: The Emergency Department. PRIMARY CARE PHYSICIAN: Dr. Abhijeet Hand of [facility] ONCOLOGIC DIAGNOSIS: Metastatic adenocarcinoma of the lung primary, with extensive bony metastases. Patient's disease is positive for the BRAF mutation. CURRENT TREATMENT: The patient is presently on palliative systemic therapy with first line trametinib plus dabrafenib; he has been on this combination for approximately 4 weeks. CHIEF COMPLAINT: 1. High grade fevers of up to 104 degrees Fahrenheit. 2. Increasing difficulty breathing. 3. Nausea and vomiting over the course of the last weekend. HISTORY OF PRESENT ILLNESS: Mr. Mccloud is a very pleasant 62-year-old man who is well known to me from my outpatient practice. Mr. Mccloud was diagnosed with metastatic adenocarcinoma of lung primary initially in April 2017, after he presented with progressive back and hip pain associated with a cough. He has a primary tumor involving the left lower lobe of the lung and he has biopsy proven metastases involving his axial skeleton. The patient was initiated on systemic therapy with dabrafenib and trametinib about 4 weeks ago, after his disease was found to be positive for the BRAF mutation. Mr. Mccloud has had the most common adverse effects associated with this combination of this therapy which is fevers, previously he was experiencing low grade fevers of up to 101/101.5 degrees Fahrenheit, usually in the evenings, which is well controlled with oral Tylenol. Over the past 1 week, his fevers have intensified and he as a result was experiencing rigors and chills. The patient also had been experiencing increasing difficulty breathing and reported worsening appetite. The patient's noted the patient to have increased nausea and noted him to be increasingly lethargic as well. She brought him into the Emergency Department earlier today, after talking to me on the telephone to discuss the symptoms. In the emergency department, the patient underwent CT scan of the thorax, which revealed reaccumulating left-sided pleural effusion which was moderate to large in size. He was noted to have findings of metastatic bony disease noted. In addition to that, he was noted to have the soft tissue parenchymal disease involving his left lung as well. He is being admitted to the hospital due to sepsis syndrome. He has been initiated on broad spectrum antibiotic therapy with vancomycin and cefepime. PAST MEDICAL HISTORY: 1. Metastatic adenocarcinoma of the lung diagnosed in April 2017. 2. Personal history of tobaccoism. 3. Coronary artery disease. 4. Hyperlipidemia. 5. Hypertension. 6. Multifocal bony metastases. PAST SURGICAL HISTORY: 1. Coronary artery bypass graft surgery in 2005. 2. EGD. 3. Tonsillectomy. 4. Colonoscopy. 5. CT guided biopsy of left lower lung mass. 6. CT guided biopsy of pelvic metastatic disease. FAMILY HISTORY: Father of complications from an intracranial aneurysm, mother of complications of dementia. SOCIAL HISTORY: The patient is . 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 He previously was a smoker, he reports having smoked a half a pack a day for 20+ years. He quit 12 years ago. He reports drinking occasionally. ALLERGIES: NO KNOWN DRUG ALLERGIES. OUTPATIENT MEDICATIONS: 1. Aspirin 81 mg once a day. 2. Atorvastatin 40 mg once a day. 3. Hydrocodone/acetaminophen 10/325 one tablet as needed up to 4 times daily. 4. Morphine sulfate extended release 15 mg by mouth every 12 hours. 5. Ranitidine. 6. Promethazine. 7. Zofran. 8. Trametinib (Mekinist). 9. Dabrafenib. CURRENT INPATIENT MEDICATIONS: 1. Normal saline 100 mL per hour. 2. Cefepime 2 grams intravenous x 1. 3. Vancomycin 1.25 grams intravenous x 1. REVIEW OF SYSTEMS: A 13-point review of systems were obtained. The following with pertinent positives and negatives: CONSTITUTIONAL: The patient reports fatigue, fevers, chills, night sweats, rigors, loss of appetite, nausea, vomiting. HEENT: Denies headaches, denies soreness of throat. RESPIRATORY: Reports exertional dyspnea, cough without phlegm production or hemoptysis. He denies pleuritic chest pain. CARDIOVASCULAR: Denies anginal chest pain, PND, orthopnea. GASTROINTESTINAL: He reports nausea and vomiting. Denies hematochezia, melena, abdominal distention. UG: No complaints. CENTRAL NERVOUS SYSTEM: Denies any focal sensorimotor deficits. MUSCULOSKELETAL: Reports chronic back pain, pelvic pain, hip pain. PHYSICAL EXAMINATION: VITAL SIGNS: Performed in the Emergency Department, temperature 102 degrees Fahrenheit, heart rate ranging between 85 and 95 beats per minute, respiratory rate 18 breaths per minute, O2 saturations 96% on 2 liters nasal cannula. GENERAL APPEARANCE: Mr. Mccloud is a middle-aged/elderly male, he is lying in bed, he is awake and alert. He is accompanied by his at bedside. HEENT: Head is atraumatic, normocephalic, conjunctivae are not pale. Sclerae are anicteric, EOMI, PERRLA. Oral exam, no pharyngeal erythema. NECK: No palpable cervical, supraclavicular lymphadenopathy. RESPIRATORY: Good air movement over the right lung, without any added breath sounds. Prolonged expiratory phase. Left lung, decreased basilar breath sounds over the mid and lower lung zones. He has good air movement over the left upper lobe. CARDIOVASCULAR: Borderline tachycardia, regular. S1, S2. No obvious murmurs, rubs or gallops. ABDOMEN: Protuberant belly, soft and nontender, nondistended. No palpable organ enlargement. EXTREMITIES: No pretibial edema, no calf tenderness. CENTRAL NERVOUS SYSTEM: No focal sensorimotor deficits, he has 4/4 strength of over his upper and lower extremities. MUSCULOSKELETAL: Good muscle mass, tone and strength. LABORATORY DATA: 1. FINDINGS DATED 07/26/2017: WBC count 3.7, hemoglobin 13.1 grams per deciliter, hematocrit 40%, platelet count 186, absolute neutrophil count is 2.8. 2. CHEMISTRIES: Sodium 137, potassium 3.8, chloride 101, bicarbonate 26.3, BUN 14, creatinine 1.1, EGFR 68, random glucose 147, calcium 7.7, total bilirubin 0.6, AST 55, ALT 28, alkaline phosphatase 182, albumin 3, magnesium 2.1, phosphate is 1.5, uric acid is 3. 3. COAGULATIONS: PTT 31.5, PT 11.7, INR 1.2. IMAGING STUDIES: CT SCAN OF THE THORAX DATED 07/26/2017: Without IV contrast, indicates large pleural effusion, with mild to moderate atelectasis of the left lower lobe. Mild atelectasis of the right lung base. Apparent bony metastases, most conspicuous at T3 and T12 posteriorly and the right tenth and right eleventh ribs. ASSESSMENT: Mr. Mccloud is a very pleasant 62-year-old man with a diagnosis of metastatic adenocarcinoma of lung primary. He was diagnosed in April 2017. He has biopsy proven bony metastatic disease. His disease harbors the rare BRAF mutation and he has been on combination therapy with BRAF and MEK inhibitor. He has been on this combination for approximately 4 weeks. He over the course of therapy has had progressive fevers. His fevers initially were low grade at 100-101 degrees Fahrenheit, but over the past 1 week, he has had elevated fevers of 102-104 degrees Fahrenheit. Over the past 5 days, he has had increased nausea, increased rigors, progressive fatigue, increased sleepiness and worsening appetite. The patient's brought him into the hospital because the patient was also experiencing increasing difficulty breathing. Upon presentation to the Emergency Department, he was found to have confirmed fever, hypoxia and tachycardia. He was hydrated with intravenous fluids and has been initiated on broad spectrum antibiotics with cefepime and vancomycin. Blood cultures have been drawn. Urine cultures have been submitted as well. The oncology service has been asked to see him for further workup and management. RECOMMENDATIONS: 1. METASTATIC ADENOCARCINOMA OF LUNG PRIMARY ASSOCIATED WITH A BRAF MUTATION: He is presently on a combination therapy with a BRAF inhibitor; dabrafenib and a MEK inhibitor; trametinib. This combination of drugs is associated with a 65+ percent response to therapy, that is why he is on this combination. Unfortunately, this combination of therapy is associated with pyrexia. I suspect that is what has occurred in this case. Mr. Mccloud is experiencing significant pyrexia associated with rigors and dehydration. This has necessitated this hospitalization. I would recommend he be hydrated liberally. The combination will be held until his fevers resolve fully. I will consider adding on corticosteroids either now or at the time when he is rechallenged with these medications, once his acute episode has resolved. He is on appropriate supportive therapy with IV fluid hydration. 2. POSSIBLE SEPSIS: Await blood cultures and urine cultures. Continue broad-spectrum antibiotic therapy with vancomycin and cefepime. 3. LEFT PLEURAL EFFUSION: I will request IR to perform ultrasound-guided left-sided thoracentesis. 4. PAIN CONTROL: Continue long and short-acting opioids. He has been on oral hydrocodone/acetaminophen 10/325 every 6 hours and long-acting morphine sulfate 50 mg by mouth every 12 hours. This ought to continue. 5. The Oncology service will follow along with you. MD TOBI Mansfield , 09:14 PM , 10:55 PM
[2017-07-27 09:44] LABS: ALBUMIN 2.3 GM/DL (3.4-5.0); BICARBONATE 22.4 MEQ/L (21.0-32.0); CALCIUM 7.2 MG/DL (8.5-10.1); CALCIUM-PROTEIN CORRECTED 8.2 MG/DL (8.5-10.1); CREATININE 0.58 MG/DL (0.60-1.30); TOTAL BILIRUBIN ADULT 0.4 MG/DL (0.2-1.0); TOTAL PROTEIN 5.3 GM/DL (6.4-8.2)
[2017-07-27] MEDS ORDERED: LIDOCAINE HCL 1% 20 ML VIAL ONE (11:26)
--- NOTE | 2017-07-27 11:39 | RADRPT ---
EXAM DATE/TIME: 07/27/2017 10:34 [facility] COMPARISON: US GUIDED THORACENTESIS LEFT, June 26, 2017, 8:13. INDICATIONS : Left pleural effusion. MEDICAL HISTORY : Hypercholesterolemia. Hypertension. Gastroesophageal reflux disease. Left pleural effusion. SURGICAL HISTORY : Tonsillectomy. CABG ENCOUNTER: Subsequent ACUITY: 3 days PAIN SCORE: 0/10 LOCATION: Left chest FLUID: Total volume of 1700 cc of clear, red fluid was removed. Fluid was sent to lab for ordered studies. TECHNIQUE: 1. Ultrasound guidance for thoracentesis. 2. Thoracentesis. The risks, benefits, and alternatives to ultrasound guided thoracentesis were explained to the patien t in lay simple terms, including the risk of bleeding and infection. Written and verbal informed con sent was obtained. Appropriate area for thoracentesis was marked under ultrasound guidance with the patient in the uprig ht position. Overlying skin was prepped and draped in the usual sterile fashion and with local anest hetic, a dermatotomy was made with an 11 blade scalpel. A 6 Malay thoracentesis catheter was placed in the pleural space and fluid was removed. Catheter was then removed and a sterile dressing applie d. There were no immediate complications. The patient tolerated the procedure well and the left the ultrasound suite in stable condition. Chest radiograph is to be obtained. CONCLUSION: Uncomplicated ultrasound guided thoracentesis. Chay Mackay MD on July 27, 2017 at 11:36 Board Certified Radiologist. This report was verified electronically.
--- NOTE | 2017-07-27 11:53 | RADRPT ---
EXAM DATE/TIME: 07/27/2017 11:30 [facility] COMPARISON: CHEST EXPIRATION ONLY, June 26, 2017, 9:07. INDICATIONS : Post left Thoracentesis MEDICAL HISTORY : Hypercholesterolemia. Hypertension SURGICAL HISTORY : CABG. ENCOUNTER: Initial ACUITY: 1 day PAIN SCORE: 0/10 LOCATION: Left chest FINDINGS: No evidence of pneumothorax status post left thoracentesis. No significant residual pleural effusion is noted. The heart is enlarged. Median sternotomy wires are noted status post reduction. Mild bibasi lar patchiness consistent with atelectasis and/or mild infiltrates are noted. CONCLUSION: No pneumothorax status post left thoracentesis. Mild bibasilar patchiness consistent with atelectasis and/or infiltrates. Cardiomegaly. Chay Mackay MD on July 27, 2017 at 11:50 Board Certified Radiologist. This report was verified electronically.
[2017-07-27] MEDS: 1/2 NS + KCL 20 MEQ INJ 1,000 ML IV SCH ×2 (12:38→19:05)
[2017-07-27] MEDS: VANCOMYCIN INJ 1,500 MG in SODIUM CHLORID 0.9% 500 ML INJ 500 ML IV SCH ×2 (12:40→22:38)
--- NOTE | 2017-07-27 12:40 | HHI.PR ---
Subjective Remarks This a 62 year old male patient with metastatic adenocarcinoma of the lung primarily associated with a BRAF mutation currently on dabrafenib and MEK inhibitor and ; trametinib who presented to the ER with fevers, nausea, vomiting and cough. Maximum temperature at home 104.3. Patient is S/P US guided Thoracentesis with 1700ml removed (07/27) Patient reports feeling much better today asking when he will be able to go home Objective Vitals Vital Signs Date Time Temp Pulse Resp B/P (MAP) Pulse Ox O2 Delivery O2 Flow Rate FiO2 07/27/17 08:00 79 07/27/17 08:00 98.6 83 18 125/87 (100) 96 07/27/17 07:00 Nasal Cannula 1.00 07/27/17 04:00 98.2 82 20 136/87 (103) 98 07/27/17 04:00 Nasal Cannula 2.00 07/27/17 03:58 76 07/27/17 01:16 77 07/27/17 00:00 Nasal Cannula 2.00 07/27/17 00:00 97.3 75 20 112/75 (87) 97 07/26/17 21:00 97.6 79 20 112/74 (87) 97 07/26/17 21:00 Nasal Cannula 2.00 07/26/17 20:59 07/26/17 18:07 98.3 87 18 106/67 (80) 98 Nasal Cannula 2.00 07/26/17 18:00 99.6 108 17 117/73 (88) 97 Nasal Cannula 2.00 07/26/17 16:53 Nasal Cannula 2.00 07/26/17 16:05 102.3 101 15 106/71 (83) 96 Nasal Cannula 2.00 07/26/17 15:58 92 Room Air 07/26/17 15:44 98.8 106 18 103/69 (80) 92 Result Diagram: 07/27/17 0730 07/27/17 0730 Other Results Laboratory Tests Test 07/26/17 16:16 07/26/17 16:23 07/26/17 16:24 07/26/17 19:20 Urine Color DARK-YELLOW Urine Turbidity HAZY Urine pH 6.0 Urine Specific [place] 1.035 Urine Protein 100 mg/dL Urine Glucose (UA) NEG mg/dL Urine Ketones 10 mg/dL Urine Occult Blood SMALL Urine Nitrite NEG Urine Bilirubin NEG Urine Urobilinogen 8.0 MG/DL Urine Leukocyte Esterase NEG Urine RBC 30 /hpf Urine WBC 5 /hpf Urine Squamous Epithelial Cells 1 /hpf Urine Mucus MANY /lpf Microscopic Urinalysis Comment CULT NOT INDICATED Lactic Acid Level 2.1 mmol/L 0.8 mmol/L White Blood Count 3.7 TH/MM3 Red Blood Count 4.57 MIL/MM3 Hemoglobin 13.1 GM/DL Hematocrit 38.9 % Mean Corpuscular Volume 85.2 FL Mean Corpuscular Hemoglobin 28.6 PG Mean Corpuscular Hemoglobin Concent 33.6 % Red Cell Distribution Width 14.2 % Platelet Count 186 TH/MM3 Mean Platelet Volume 8.8 FL Neutrophils (%) (Auto) 74.8 % Lymphocytes (%) (Auto) 14.3 % Monocytes (%) (Auto) 10.2 % Eosinophils (%) (Auto) 0.0 % Basophils (%) (Auto) 0.7 % Neutrophils # (Auto) 2.8 TH/MM3 Lymphocytes # (Auto) 0.5 TH/MM3 Monocytes # (Auto) 0.4 TH/MM3 Eosinophils # (Auto) 0.0 TH/MM3 Basophils # (Auto) 0.0 TH/MM3 CBC Comment DIFF FINAL Differential Comment Prothrombin Time 11.7 SEC Prothromb Time International Ratio 1.2 RATIO Activated Partial Thromboplast Time 31.5 SEC Blood Urea Nitrogen 14 MG/DL Creatinine 1.11 MG/DL Random Glucose 147 MG/DL Total Protein 7.3 GM/DL Albumin 3.0 GM/DL Calcium Level 7.7 MG/DL Phosphorus Level 1.5 MG/DL Magnesium Level 2.1 MG/DL Uric Acid 3.0 MG/DL Alkaline Phosphatase 182 U/L Aspartate Amino Transf (AST/SGOT) 55 U/L Alanine Aminotransferase (ALT/SGPT) 28 U/L Total Bilirubin 0.6 MG/DL Sodium Level 137 MEQ/L Potassium Level 3.8 MEQ/L Chloride Level 101 MEQ/L Carbon Dioxide Level 26.3 MEQ/L Anion Gap 10 MEQ/L Estimat Glomerular Filtration Rate 68 ML/MIN Total Creatine Kinase 124 U/L Creatine Kinase MB 0.5 NG/ML Troponin I LESS THAN 0.02 NG/ML Test 07/27/17 07:30 07/27/17 11:05 White Blood Count 2.5 TH/MM3 Red Blood Count 3.65 MIL/MM3 Hemoglobin 10.4 GM/DL Hematocrit 30.7 % Mean Corpuscular Volume 84.0 FL Mean Corpuscular Hemoglobin 28.6 PG Mean Corpuscular Hemoglobin Concent 34.0 % Red Cell Distribution Width 14.1 % Platelet Count 162 TH/MM3 Mean Platelet Volume 8.8 FL Neutrophils (%) (Auto) 61.4 % Lymphocytes (%) (Auto) 24.0 % Monocytes (%) (Auto) 14.1 % Eosinophils (%) (Auto) 0.1 % Basophils (%) (Auto) 0.4 % Neutrophils # (Auto) 1.5 TH/MM3 Lymphocytes # (Auto) 0.6 TH/MM3 Monocytes # (Auto) 0.3 TH/MM3 Eosinophils # (Auto) 0.0 TH/MM3 Basophils # (Auto) 0.0 TH/MM3 CBC Comment DIFF FINAL Differential Comment Blood Urea Nitrogen 8 MG/DL Creatinine 0.58 MG/DL Random Glucose 93 MG/DL Total Protein 5.3 GM/DL Albumin 2.3 GM/DL Calcium Level 7.2 MG/DL Alkaline Phosphatase 136 U/L Aspartate Amino Transf (AST/SGOT) 41 U/L Alanine Aminotransferase (ALT/SGPT) 21 U/L Total Bilirubin 0.4 MG/DL Sodium Level 138 MEQ/L Potassium Level 3.6 MEQ/L Chloride Level 107 MEQ/L Carbon Dioxide Level 22.4 MEQ/L Anion Gap 9 MEQ/L Estimat Glomerular Filtration Rate 143 ML/MIN Protein Corrected Calcium 8.2 MG/DL Imaging Last 24 hours Impressions Chest X-Ray 07/26/17 1610 Signed Impressions: Service Date/Time: July 16:21 - CONCLUSION: Atelectasis, infiltrate and/or scarring within the left lung base. Elevation of the left hemidiaphragm. Chay Mackay MD Objective Remarks GENERAL: This is a well-nourished, well-developed patient CARDIOVASCULAR: Regular rate and rhythm RESPIRATORY: left side clear, crackles in the base on the right side GASTROINTESTINAL: Abdomen soft, non-tender, nondistended. Normal active bowel sounds MUSCULOSKELETAL: Extremities without clubbing, cyanosis, or edema. NEURO: Alert & Oriented x4 to person, place, time, situation. Moves all ext x4 Procedures left sided US guided thoracentesis with 1700 ml removed 07/27 A/P Problem List: (1) Sepsis ICD Codes: A41.9 - Sepsis, unspecified organism Status: Acute Plan: Patient with fevers and tachycardia on admission Sepsis vs reaction to current chemo regiment - Patient started on broad spectrum abx Cefepime and Vancomycin with pharmacy dosing vanco - UA reviewed no culture indicated - CT chest: Large left pleural effusion with mild to moderate atelectasis of the left lower lobe. Mild atelectasis right lung base. Apparent body metastatic disease, most conspicuous T8 and T12 vertebral bodies and posteriorly on the right 10th and 11th rib. Possible metastatic lesions on left the humeral head - Patient underwent therapeutic ultrasound-guided thoracentesis 07/27 with 1700 mg removed - Post procedure chest x-ray 07/27 reviewed and reveals no pneumothorax status post left thoracentesis. Mild 5 basilar patchiness consistent with atelectasis and/or infiltrate. Cardiomegaly - Blood cultures obtained and pending consult oncology, appreciate input: per oncology METASTATIC ADENOCARCINOMA OF LUNG PRIMARY ASSOCIATED WITH A BRAF MUTATION: He is presently on a combination therapy with a BRAF inhibitor; dabrafenib and a MEK inhibitor; trametinib. This combination of drugs is associated with a 65+ percent response to therapy, that is why he is on this combination. Unfortunately, this combination of therapy is associated with pyrexia. Oncology recommends liberal hydration. The combination will be held until his fevers resolve fully. - continue IVF 1/2 NS with KCL at 84 ml/H - Plan to continue broad spectrum abx until all cultures are returned (2) Bone metastases ICD Codes: C79.51 - Secondary malignant neoplasm of bone Status: Chronic Plan: consult oncology Continue patient's home pain control regiment. He has been on oral hydrocodone/ acetaminophen 10/325 every 6 hours and long-acting morphine sulfate 50 mg by mouth every 12 hours. (3) Pleural effusion ICD Codes: J90 - Pleural effusion, not elsewhere classified Plan: Patient has recurrent L pleral effusions with multiple thoracentesis. Last thoracentesis approximately 3 weeks ago, 2500ml removed. - CT chest: Large left pleural effusion with mild to moderate atelectasis of the left lower lobe. Mild atelectasis right lung base. Apparent body metastatic disease, most conspicuous T8 and T12 vertebral bodies and posteriorly on the right 10th and 11th rib. Possible metastatic lesions on left the humeral head - Patient underwent therapeutic ultrasound-guided thoracentesis 07/27 with 1700 mg removed - Post procedure chest x-ray 07/27 reviewed and reveals no pneumothorax status post left thoracentesis. Mild 5 basilar patchiness consistent with atelectasis and/or infiltrate. Cardiomegaly Assessment and Plan Patient examined. Assessment and plan formulated with Blanca Ariza PA-C. I agree with the above. Problem Qualifiers (1) Sepsis: Qualified Codes: A41.9 - Sepsis, unspecified organism Blanca Ariza Jul 27, 2017 12:40 Faisal More DO Jul 31, 2017 20:55
[2017-07-27 12:46] LABS: HEMATOCRIT 32.5 % (39.0-51.0); HEMOGLOBIN 11.2 GM/DL (13.0-17.0); MEAN CELL VOLUME 84.2 FL (80.0-100.0); MEAN CORPUSCULAR HEMOGLOBIN 28.9 PG (27.0-34.0); MEAN CORPUSCULAR HGB CONC 34.3 % (32.0-36.0); MEAN PLATELET VOLUME 8.6 FL (7.0-11.0); PLATELET COUNT 177 TH/MM3 (150-450); RED BLOOD COUNT 3.86 MIL/MM3 (4.50-5.90); RED CELL DISTRIBUTION WIDTH 14.2 % (11.6-17.2); WHITE BLOOD COUNT 2.2 TH/MM3 (4.0-11.0)
[2017-07-27 12:48] LABS: TOTAL PROTEIN,PLEURAL FLUID 3.9 GM/DL
[2017-07-27 12:55] LABS: INTERNATIONAL NORMALIZED RATIO 1.1 RATIO; PROTHROMBIN TIME - PATIENT 11.6 SEC (9.8-11.6)
[2017-07-27 13:44] LABS: PLEURAL FLUID LYMPHS 75 %; PLEURAL FLUID POLYS (SEGS) 3 %; PLEURAL FLUID RBC 10510 /MM3 (0-0); PLEURAL FLUID WBC 31 /MM3 (0-10)
[2017-07-27 13:45] LABS: PLEURAL FLUID HISTIOCYTES 15 %; PLEURAL FLUID MESOTHELIAL 2 %; PLEURAL FLUID MONOS 5 %
--- NOTE | 2017-07-27 14:19 | EKG ---
Date Performed: 07/26/2017 Time Performed: 16:34:41 PTAGE: 62 years EKG: SINUS TACHYCARDIA ABNORMAL RHYTHM ECG PREVIOUS TRACING : 11/29/2009 16.[address]-T changes, but largely unchanged fro m prior. DOCTOR: Herman Serna Interpretating Date/Time 07/27/2017 14:18:24
--- NOTE | 2017-07-27 21:27 | PD.ONC.PN ---
Subjective Subjective Remarks Patient was seen and examined at 6:50pm. This note reflects that encounter. Vitals, medications, procedure notes, microbiology and labs reviewed. Pt underwent a left sided thoracentesis earlier today; 1700cc pleural fluid was removed. Mr. Mccloud reports his breathing has improved significantly after the procedure and he no longer needs oxygen. He has not had a fevers since initial presentation. He tells me he feels "almost like himself", in his words much improved. He would like to go home tonight if possible. Appetite remains fair to poor. Objective Data Date Time Temp Pulse Resp B/P (MAP) Pulse Ox O2 Delivery O2 Flow Rate FiO2 07/27/17 18:15 99.4 07/27/17 16:00 80 07/27/17 16:00 98.4 76 18 134/81 (98) 98 07/27/17 15:00 Nasal Cannula 2.00 07/27/17 12:00 97.9 83 18 120/77 (91) 96 07/27/17 12:00 78 07/27/17 08:00 79 07/27/17 08:00 98.6 83 18 125/87 (100) 96 07/27/17 07:00 Nasal Cannula 1.00 07/27/17 04:00 98.2 82 20 136/87 (103) 98 07/27/17 04:00 Nasal Cannula 2.00 07/27/17 03:58 76 07/27/17 01:16 77 07/27/17 00:00 Nasal Cannula 2.00 07/27/17 00:00 97.3 75 20 112/75 (87) 97 07/27/17 07/27/17 07/27/17 07:00 15:00 23:00 Intake Total 350 ml 480 ml Output Total 1000 ml Balance 350 ml -520 ml Result Diagram: 07/27/17 1209 07/27/17 0730 Laboratory Results Laboratory Tests Test 07/27/17 07:30 07/27/17 11:05 07/27/17 12:09 White Blood Count 2.5 TH/MM3 2.2 TH/MM3 Red Blood Count 3.65 MIL/MM3 3.86 MIL/MM3 Hemoglobin 10.4 GM/DL 11.2 GM/DL Hematocrit 30.7 % 32.5 % Mean Corpuscular Volume 84.0 FL 84.2 FL Mean Corpuscular Hemoglobin 28.6 PG 28.9 PG Mean Corpuscular Hemoglobin Concent 34.0 % 34.3 % Red Cell Distribution Width 14.1 % 14.2 % Platelet Count 162 TH/MM3 177 TH/MM3 Mean Platelet Volume 8.8 FL 8.6 FL Neutrophils (%) (Auto) 61.4 % Lymphocytes (%) (Auto) 24.0 % Monocytes (%) (Auto) 14.1 % Eosinophils (%) (Auto) 0.1 % Basophils (%) (Auto) 0.4 % Neutrophils # (Auto) 1.5 TH/MM3 Lymphocytes # (Auto) 0.6 TH/MM3 Monocytes # (Auto) 0.3 TH/MM3 Eosinophils # (Auto) 0.0 TH/MM3 Basophils # (Auto) 0.0 TH/MM3 CBC Comment DIFF FINAL Differential Comment Blood Urea Nitrogen 8 MG/DL Creatinine 0.58 MG/DL Random Glucose 93 MG/DL Total Protein 5.3 GM/DL Albumin 2.3 GM/DL Calcium Level 7.2 MG/DL Alkaline Phosphatase 136 U/L Aspartate Amino Transf (AST/SGOT) 41 U/L Alanine Aminotransferase (ALT/SGPT) 21 U/L Total Bilirubin 0.4 MG/DL Sodium Level 138 MEQ/L Potassium Level 3.6 MEQ/L Chloride Level 107 MEQ/L Carbon Dioxide Level 22.4 MEQ/L Anion Gap 9 MEQ/L Estimat Glomerular Filtration Rate 143 ML/MIN Protein Corrected Calcium 8.2 MG/DL Pleural Fluid pH 8.0 Pleural Fluid WBC 31 /MM3 Pleural Fluid RBC 36742 /MM3 Pleural Fluid Neutrophils 3 % Pleural Fluid Lymphocytes 75 % Pleural Fluid Monocytes 5 % Pleural Fluid Histiocytes 15 % Pleural Fluid Mesothelial Cells 2 % Pleural Fluid Comment Pleural Fluid Total Protein 3.9 GM/DL Pleural Fluid LDH 207 U/L Pleural Fluid Glucose 118 MG/DL Prothrombin Time 11.6 SEC Prothromb Time International Ratio 1.1 RATIO Activated Partial Thromboplast Time 31.9 SEC Culture Results Microbiology Date/Time Source Procedure Growth Status 07/26/17 14:27 Blood Peripheral Aerobic Blood Culture - Preliminary NO GROWTH IN 1 DAY Resulted 07/26/17 14:27 Blood Peripheral Anaerobic Blood Culture - Preliminary NO GROWTH IN 1 DAY Resulted 07/26/17 14:27 Blood Peripheral Aerobic Blood Culture - Preliminary NO GROWTH IN 1 DAY Resulted 07/26/17 14:27 Blood Peripheral Anaerobic Blood Culture - Preliminary NO GROWTH IN 1 DAY Resulted 07/27/17 11:05 Fluid Pleural Fluid Fungal Smear - Final NO FUNGAL ELEMENTS SEEN. Resulted 07/27/17 11:05 Fluid Pleural Fluid Fungal Culture Pending Resulted 07/27/17 11:05 Fluid Pleural Fluid Acid Fast Stain Pending Received 07/27/17 11:05 Fluid Pleural Fluid Mycobacterial Culture Pending Received 07/27/17 11:05 Fluid Pleural Fluid Gram Stain - Final Resulted 07/27/17 11:05 Fluid Pleural Fluid Body Fluid Culture Pending Resulted 07/26/17 16:45 Nasal Aspirate Influenza Types A,B Antigen (KAPIL) - Final NEGATIVE FOR FLU A AND B ANTIGEN.... Complete Imaging Studies Last 24 hours Impressions Thoracentesis Ultrasound 07/27/17 0000 Signed Impressions: Service Date/Time: Thursday, July 27, 2017 10:34 - CONCLUSION: Uncomplicated ultrasound guided thoracentesis. Chay Mackay MD Chest X-Ray 07/27/17 0000 Signed Impressions: Service Date/Time: Thursday, July 27, 2017 11:30 - CONCLUSION: No pneumothorax status post left thoracentesis. Mild bibasilar patchiness consistent with atelectasis and/or infiltrates. Cardiomegaly. Chay Mackay MD Administered Medications Medications (Trade) Dose Ordered Sig/Shameka Route PRN Reason Start Time Stop Time Status Last Admin Dose Admin Aspirin (Aspirin Chew) 81 mg HS CHEW 07/26/17 21:00 07/26/17 22:11 Atorvastatin Calcium (Lipitor) 40 mg HS PO 07/26/17 21:00 07/26/17 22:12 Morphine Sulfate (Oramorph Sr) 30 mg BID PO 07/26/17 21:00 07/27/17 09:06 Oxycodone HCl (Roxicodone) 10 mg Q6H PRN PO PAIN 07/26/17 19:15 07/27/17 14:50 Famotidine (Pepcid) 20 mg HS PO 07/26/17 21:00 07/26/17 22:11 Cefepime HCl 1000 mg/Sodium Chloride 100 ml @ 200 mls/hr Q8H IV 07/27/17 02:00 07/27/17 17:34 Sodium Chloride (NS Flush) 2 ml BID IV FLUSH 07/26/17 21:00 07/26/17 22:12 Ondansetron HCl (Zofran Inj) 4 mg Q6H PRN IVP NAUSEA OR VOMITING 07/26/17 19:15 07/27/17 17:34 Senna/Docusate Sodium (Nayeli-Colace) 1 tab BID PO 07/26/17 21:00 07/27/17 09:06 Potassium Chloride/Sodium Chloride 1,000 ml @ 84 mls/hr [id number] IV 07/26/17 19:15 07/27/17 12:38 Vancomycin HCl 1500 mg/Sodium Chloride 515 ml @ 250 mls/hr Q12H IV 07/27/17 11:00 07/27/17 12:40 Objective Remarks GENERAL APPEARANCE: Mr. Mccloud is a middle-aged/elderly male, he is lying in bed, he is awake and alert. He is accompanied by his at bedside. HEENT: Head is atraumatic, normocephalic, conjunctivae are not pale. Sclerae are anicteric, EOMI, PERRLA. Oral exam, no pharyngeal erythema. NECK: No palpable cervical, supraclavicular lymphadenopathy. RESPIRATORY: Good air movement over the right lung, without any added breath sounds. Prolonged expiratory phase. Left lung, breath sounds over the base are improved. CARDIOVASCULAR: Borderline tachycardia, regular. S1, S2. No obvious murmurs, rubs or gallops. ABDOMEN: Protuberant belly, soft and nontender, nondistended. No palpable organ enlargement. EXTREMITIES: No pretibial edema, no calf tenderness. CENTRAL NERVOUS SYSTEM: No focal sensorimotor deficits, he has 4/4 strength of over his upper and lower extremities. MUSCULOSKELETAL: Good muscle mass, tone and strength. Assessment/Plan Assessment Mr. Mccloud is a very pleasant 62-year-old man with a diagnosis of metastatic adenocarcinoma of lung primary. He was diagnosed in April 2017. He has biopsy proven bony metastatic disease. His disease harbors the rare BRAF mutation and he has been on combination therapy with BRAF and MEK inhibitor. He has been on this combination for approximately 4 weeks. He over the course of therapy has had progressive fevers. His fevers initially were low grade at 100-101 degrees Fahrenheit, but over the past 1 week, he has had elevated fevers of 102-104 degrees Fahrenheit. Over the past 5 days, he has had increased nausea, increased rigors, progressive fatigue, increased sleepiness and worsening appetite. The patient's brought him into the hospital because the patient was also experiencing increasing difficulty breathing. Upon presentation to the Emergency Department, he was found to have confirmed fever, hypoxia and tachycardia. He was hydrated with intravenous fluids and has been initiated on broad spectrum antibiotics with cefepime and vancomycin. Plan 1. Clinically improved post L sided thoracentesis. 2. He has been afebrile since his initial presentation about 24 hrs ago. All cultures remain negative. 3. Metastatic BRAF mutation positive adenocarcinoma of the lung: Dabrafenib and trametinib remain on hold. These agents were likely responsible for the pyrexia and subsequent rigors and dehydration. I will likely resume therapy at a dose reduction and with corticosteroids next week. 4. Disposition: Clear for d/c home if he remains afebrile overnight. Pls d/c home with 3 additional days of antibiotic therapy with levofloxacin. Out patient follow up with me at [facility] next week will be arranged. Tim Ross MD Jul 27, 2017 21:27
[2017-07-27] MEDS: ASPIRIN 81 MG CHEW TAB CHEW SCH (21:48)
[2017-07-27] MEDS: ATORVASTATIN 40 MG TAB PO SCH (21:48)
[2017-07-27] MEDS: FAMOTIDINE 20 MG TAB PO SCH (21:49)
[2017-07-28] VITALS: BP 122/81; PULSE 70; PULSE 77; RESP 16; TEMP 97.7; O2SAT 96
[2017-07-28] MEDS: CEFEPIME INJ 1,000 MG in SODIUM CHLORIDE 0.9% INJ 100 ML IV SCH ×2 (01:51→09:20)
[2017-07-28 04:00] VITALS: BP 114/72; PULSE 64; PULSE 87; RESP 16; TEMP 98.1; O2SAT 97
[2017-07-28] MEDS: 1/2 NS + KCL 20 MEQ INJ 1,000 ML IV SCH (06:26)
[2017-07-28 07:59] VITALS: PULSE 66
[2017-07-28 08:00] VITALS: BP 129/83; PULSE 77; RESP 16; TEMP 97.3; O2SAT 97
[2017-07-28] MEDS: SODIUM CHLORIDE 0.9% FLUSH 10 ML FLUSH IV FLUSH SCH (09:00)
[2017-07-28] MEDS ORDERED: LEVO500T8 PO (09:10)
[2017-07-28] MEDS: DOCUSATE SODIUM 50 MG/SENNA 8.6 MG TAB PO SCH (09:20)
[2017-07-28] MEDS: MORPHINE SULFATE 30 MG CONTROLLED RELEASE TAB PO SCH (09:20)
[2017-07-28] MEDS ORDERED: PHARMACY ORDERED LAB ONE (10:45)
[2017-07-28] MEDS: VANCOMYCIN INJ 1,500 MG in SODIUM CHLORID 0.9% 500 ML INJ 500 ML IV SCH (11:00)
--- NOTE | 2017-07-28 11:08 | HHI.DS ---
Discharge Summary Admission Date Jul 26, 2017 at 18:09 Discharge Date: Jul 28, 2017 Admitting Diagnosis sepsis, h/o adenocarcinoma (1) Sepsis Diagnosis: Principal ICD Codes: A41.9 - Sepsis, unspecified organism Status: Acute (2) Bone metastases Diagnosis: Secondary ICD Codes: C79.51 - Secondary malignant neoplasm of bone Status: Chronic (3) Pleural effusion Diagnosis: Secondary ICD Codes: J90 - Pleural effusion, not elsewhere classified Consultants Dr. 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 Patient states that his fevers been up to 104.3 and have not been completely resolved with Tylenol. Says he has nausea, vomiting, and cough the patient does have lung cancer and he is unsure if this is related to his cancer or new process. States that he has felt nauseous with vomiting for the last 5 weeks since starting his chemo medication. He denies hematochezia, melena, hematemesis. states that his oxygen is usually about 90% at home but today he dropped down to 80% on room air patient is not normally on oxygen at home. Patient says he had a CABG 10 years ago and a stress test about a year ago which was normal. Patient is not currently follow cardiology. Says he is due for a thoracentesis tomorrow however, because of his fever the recommended he come to the emergency department today for evaluation. His oncologist is Dr. Ross who recommended CT thorax start cefipine and vancomycin sepsis work up . CBC/BMP: 07/27/17 1209 07/27/17 0730 Significant Findings Laboratory Tests Test 07/26/17 16:16 07/26/17 16:23 07/26/17 16:24 07/26/17 19:20 Urine Color DARK-YELLOW (YELLW/STRAW) Urine Turbidity HAZY (CLEAR) Urine Protein 100 mg/dL (NEG-TRACE) Urine Ketones 10 mg/dL (NEG) Urine Occult Blood SMALL (NEG) Urine Urobilinogen 8.0 MG/DL (LESS THAN Urine RBC 30 /hpf (0-3) Urine Mucus MANY /lpf (OCC) Lactic Acid Level 2.1 mmol/L (0.4-2.0) White Blood Count 3.7 TH/MM3 (4.0-11.0) Hematocrit 38.9 % (39.0-51.0) Neutrophils (%) (Auto) 74.8 % (16.0-70.0) Monocytes (%) (Auto) 10.2 % (0.0-8.0) Lymphocytes # (Auto) 0.5 TH/MM3 (1.0-4.8) Prothrombin Time 11.7 SEC (9.8-11.6) Activated Partial Thromboplast Time 31.5 SEC (24.3-30.1) Random Glucose 147 MG/DL (74-106) Albumin 3.0 GM/DL (3.4-5.0) Calcium Level 7.7 MG/DL (8.5-10.1) Phosphorus Level 1.5 MG/DL (2.5-4.9) Alkaline Phosphatase 182 U/L (45-117) Aspartate Amino Transf (AST/SGOT) 55 U/L (15-37) Estimat Glomerular Filtration Rate 68 ML/MIN (>89) Troponin I LESS THAN 0.02 NG/ML Test 07/27/17 07:30 07/27/17 11:05 07/27/17 12:09 White Blood Count 2.5 TH/MM3 (4.0-11.0) 2.2 TH/MM3 (4.0-11.0) Red Blood Count 3.65 MIL/MM3 (4.50-5.90) 3.86 MIL/MM3 (4.50-5.90) Hemoglobin 10.4 GM/DL (13.0-17.0) 11.2 GM/DL (13.0-17.0) Hematocrit 30.7 % (39.0-51.0) 32.5 % (39.0-51.0) Monocytes (%) (Auto) 14.1 % (0.0-8.0) Neutrophils # (Auto) 1.5 TH/MM3 (1.8-7.7) Lymphocytes # (Auto) 0.6 TH/MM3 (1.0-4.8) Creatinine 0.58 MG/DL (0.60-1.30) Total Protein 5.3 GM/DL (6.4-8.2) Albumin 2.3 GM/DL (3.4-5.0) Calcium Level 7.2 MG/DL (8.5-10.1) Alkaline Phosphatase 136 U/L (45-117) Aspartate Amino Transf (AST/SGOT) 41 U/L (15-37) Protein Corrected Calcium 8.2 MG/DL (8.5-10.1) Pleural Fluid WBC 31 /MM3 (0-10) Pleural Fluid RBC 85938 /MM3 (0-0) Activated Partial Thromboplast Time 31.9 SEC (24.3-30.1) Imaging Last Impressions Thoracentesis Ultrasound 07/27/17 0000 Signed Impressions: Service Date/Time: Thursday, July 27, 2017 10:34 - CONCLUSION: Uncomplicated ultrasound guided thoracentesis. Chay Mackay MD Chest X-Ray 07/27/17 0000 Signed Impressions: Service Date/Time: Thursday, July 27, 2017 11:30 - CONCLUSION: No pneumothorax status post left thoracentesis. Mild bibasilar patchiness consistent with atelectasis and/or infiltrates. Cardiomegaly. Chay Mackay MD Chest CT 07/26/17 0000 Signed Impressions: Service Date/Time: July 18:43 - CONCLUSION: 1. Large left pleural effusion with mild to moderate atelectasis of the left lower lobe. 2. Mild atelectasis right lung base. 3. Apparent bony metastatic disease, most conspicuous T8 and T12 vertebral bodies and posteriorly of the right 10th and 11th ribs. Possible metastatic lesion of the left humeral head. Alex Rader MD PE at Discharge GENERAL: This is a well-nourished, well-developed patient CARDIOVASCULAR: Regular rate and rhythm RESPIRATORY: left side clear, crackles in the base on the right side GASTROINTESTINAL: Abdomen soft, non-tender, nondistended. Normal active bowel sounds MUSCULOSKELETAL: Extremities without clubbing, cyanosis, or edema. NEURO: Alert & Oriented x4 to person, place, time, situation. Moves all ext x4 Hospital Course Sepsis Patient with fevers and tachycardia on admission Sepsis vs reaction to current chemo regiment - Patient started on broad spectrum abx Cefepime and Vancomycin with pharmacy dosing vanco - UA reviewed no culture indicated - CT chest: Large left pleural effusion with mild to moderate atelectasis of the left lower lobe. Mild atelectasis right lung base. Apparent body metastatic disease, most conspicuous T8 and T12 vertebral bodies and posteriorly on the right 10th and 11th rib. Possible metastatic lesions on left the humeral head - Patient underwent therapeutic ultrasound-guided thoracentesis 07/27 with 1700 mg removed - Post procedure chest x-ray 07/27 reviewed and reveals no pneumothorax status post left thoracentesis. Mild 5 basilar patchiness consistent with atelectasis and/or infiltrate. Cardiomegaly - Blood cultures obtained and pending consult oncology, appreciate input: per oncology METASTATIC ADENOCARCINOMA OF LUNG PRIMARY ASSOCIATED WITH A BRAF MUTATION: He is presently on a combination therapy with a BRAF inhibitor; dabrafenib and a MEK inhibitor; trametinib. This combination of drugs is associated with a 65+ percent response to therapy, that is why he is on this combination. Unfortunately, this combination of therapy is associated with pyrexia. Oncology recommends liberal hydration. The combination will be held until his fevers resolve fully. - continue IVF 1/2 NS with KCL at 84 ml/H - Patient improved faster than expected. Will DC home on Levaquin and instructed to follow up with PCP Bone metastases consult oncology Continue patient's home pain control regiment. He has been on oral hydrocodone/ acetaminophen 10/325 every 6 hours and long-acting morphine sulfate 50 mg by mouth every 12 hours. Pleural effusion Patient has recurrent L pleural effusions with multiple thoracentesis. Last thoracentesis approximately 3 weeks ago, 2500ml removed. - CT chest: Large left pleural effusion with mild to moderate atelectasis of the left lower lobe. Mild atelectasis right lung base. Apparent body metastatic disease, most conspicuous T8 and T12 vertebral bodies and posteriorly on the right 10th and 11th rib. Possible metastatic lesions on left the humeral head - Patient underwent therapeutic ultrasound-guided thoracentesis 07/27 with 1700 mg removed - Post procedure chest x-ray 07/27 reviewed and reveals no pneumothorax status post left thoracentesis. Mild 5 basilar patchiness consistent with atelectasis and/or infiltrate. Cardiomegaly Pt Condition on Discharge: Stable Discharge Disposition: Discharge Home Discharge Instructions DIET: Follow Instructions for: As Tolerated, No Restrictions Activities you can perform: Regular-No Restrictions Follow up Referrals: Oncology - 3-[address] Ross New Medications: Levofloxacin (Levofloxacin) 500 Mg Tablet 500 MG PO DAILY for Infection, #7 TAB 0 Refills Continued Medications: Aspirin (Aspirin Low Dose) 81 Mg Chew 81 MG CHEW HS, TAB 0 Refills Atorvastatin (Atorvastatin) 40 Mg Tab 40 MG PO HS for Cholesterol Management, #30 TAB 0 Refills Diphenhydramine (Diphenhydramine) 25 Mg Cap 25 MG PO HS PRN for INSOMNIA, CAP 0 Refills Docusate Sodium (Docusate Sodium) 100 Mg Cap 100 MG PO BID PRN for CONSTIPATION, #60 CAP 0 Refills Morphine ER (Morphine ER) 30 Mg Tab 30 MG PO BID for Pain Management, TAB 0 Refills Ondansetron (Zofran) 4 Mg Tab 4 MG PO Q6HR PRN for NAUSEA OR VOMITING, TAB 0 Refills Oxycodone (Oxycodone) 10 Mg Tab 10 MG PO Q6H PRN for PAIN, TAB 0 Refills Promethazine (Phenergan) 25 Mg Tablet 25 MG PO Q6H PRN for NAUSEA OR VOMITING, TAB 0 Refills Ranitidine (Ranitidine) 150 Mg Tab 150 MG PO HS for Heartburn Management, #30 TAB 0 Refills Discontinued Medications: Dabrafenib (Tafinlar) 75 Mg Cap 75 MG PO BID for Chemotherapy Management, CAP 0 Refills Dabrafenib (Tafinlar) 75 Mg Cap 150 MG PO BID for Chemotherapy Management, CAP 0 Refills Lisinopril (Lisinopril) 10 Mg Tab 10 MG PO HS, #30 TAB 0 Refills Trametinib Dimethyl Sulfoxide (Mekinist) 2 Mg Tablet Additional Information Patient examined. Assessment and plan formulated with Blanca Ariza PA-C. I agree with the above. Blanca Ariza Jul 28, 2017 11:07 Faisal More DO Jul 31, 2017 20:57
--- NOTE | 2017-07-28 11:08 | HHI.DCPOC ---
Discharge Care Plan Diagnosis: (1) Fever (2) Mass of left lung (3) Bone metastases (4) Pleural effusion Goals to Promote Your Health * To prevent worsening of your condition and complications * To maintain your health at the optimal level Directions to Meet Your Goals Take your medications as prescribed Follow your dietary instruction Follow activity as directed Keep your appointments as scheduled Take your immunizations and boosters as scheduled If your symptoms worsen call your PCP, if no PCP go to Urgent Care Center or Emergency Room Smoking is Dangerous to Your Health. Avoid second hand smoke Call the 24-hour hour crisis hotline for domestic abuse at Blanca Ariza Jul 28, 2017 11:08 Faisal More DO Jul 31, 2017 20:56
[2017-07-28] MEDS ORDERED: ZOFR4TAB PO (11:22)
[2017-07-28 14:47] LABS: AMYLASE BODY FLUID 29 U/L; AMYLASE BODY FLUID TYPE PLEURAL
== END 2017-07-28 14:30 | disposition home or self-care (01) | DRG 872 ==
LOC: NEPC 15:40 → NEDA 18:09 → N04B 20:53
PROVIDERS: ADMIT Hospitalist; ATTEND Hospitalist
PROC: 0W9B3ZX Drainage of Left Pleural Cavity, Percutaneous Approach, Diagnostic (ICD-10-PCS; principal; 2017-07-27)
DX: A41.9 Sepsis, unspecified organism (principal); J90 Pleural effusion, not elsewhere classified; C79.51 Secondary malignant neoplasm of bone; Z85.118 Personal history of other malignant neoplasm of bronchus and lung; I25.10 Atherosclerotic heart disease of native coronary artery without angina pectoris; Z95.1 Presence of aortocoronary bypass graft; K21.9 Gastro-esophageal reflux disease without esophagitis; Z79.82 Long term (current) use of aspirin; E78.5 Hyperlipidemia, unspecified; I10 Essential (primary) hypertension; I51.7 Cardiomegaly; Z79.899 Other long term (current) drug therapy; Z87.891 Personal history of nicotine dependence
CPT/HCPCS: 32555; 71045; 71046; 71250; 80053; 81001; 82150; 82550; 82552; 82945; 83605; 83615; 83735; 83986; 84100; 84157; 84484; 84550; 85025; 85027; 85610; 85730; 87015; 87040; 87070; 87102; 87116; 87205; 87206; 87804; 88112; 88305; 89051; 93005; 94150; 96361; 96374; 96375; C1729; J0692; J2405; J3370; J7030; J7040; J7050

== ENCOUNTER 2017-10-18 07:51 | Day surgery (SDC) | payer OTHER ==
[~2017-10-18 07:51] MED LIST changes: +DIPH25CA PO; +LEVO500T8 PO; -LISI10TA3 PO; +MORP1TAB25 PO; +OXYC-395 PO; -OXYC1TAB63 PO; +PROM25TA10 PO
[2017-10-18 08:06] VITALS: BP 106/76; PULSE 68; RESP 16; TEMP 97.8; O2SAT 100
--- NOTE | 2017-10-18 08:55 | PD.RAD ---
Post US Procedure Prog Note Pre Procedure Diagnosis: (1) Pleural effusion Post Procedure Diagnosis: (1) Pleural effusion Procedure Date: Oct 18, 2017 Supervising Radiologist: Alex Chapa Proceduralist/Assist: Nitza Winslow RDMS Anesthesia: Local Plan of Activity Patient to Unit: [facility] Patient Condition: Good See PACS Report for procedural detail/treatment Drainage Procedure Procedure 1 Imaging Guidance: Ultrasound Side: Left Procedure Type: Thoracentesis Drainage: Suction Fluid Removal (CCs): 1250 Fluid Description: Clear, Yellow Plan to [facility] then discharge if cxr is negative Alex Chapa MD Oct 18, 2017 08:55
[2017-10-18 09:05] VITALS: BP 106/78; PULSE 59; RESP 16; TEMP 97.6; O2SAT 99
[2017-10-18 09:06] VITALS: BP 106/78; PULSE 59; RESP 16; TEMP 97.6; O2SAT 99
[2017-10-18] MEDS ORDERED: LIDOCAINE HCL 1% PF 30 ML VIAL ONE (09:09)
--- NOTE | 2017-10-18 09:14 | RADRPT ---
EXAM DATE: 10/18/2017 9:02 AM EDT AGE/SEX: 62 years / Male INDICATIONS: Post left thoracentesis. CLINICAL DATA: This is the patient's initial encounter. Patient reports that signs and symptoms have been present for 1 day and indicates a pain score of 0/10. MEDICAL/SURGICAL HISTORY: Carcinoma, lung. CABG. COMPARISON: [facility] [place], CHEST EXPIRATION ONLY, 07/27/2017. [facility] [place], CHEST EXPIRATION ONLY, 06/26/2017. . FINDINGS: Single expiratory view of the chest demonstrates no pneumothorax following recent left thoracentesis. There is opacity in the left lower lobe and at the right lung base. Multiple clips overlie the left hemithorax. Patient is post median sternotomy. There is a stable focal area of sclerosis involving th e distal right clavicle and proximal left humerus. CONCLUSION: 1. No pneumothorax following recent left thoracentesis. 2. Persistent bibasilar airspace opacity representing either atelectasis or consolidation. 3. Stable sclerotic bone lesions characteristic of metastatic disease. Electronically signed by: Alex Chapa MD 10/18/2017 9:12 AM EDT
[2017-10-18 09:22] VITALS: BP 109/72; PULSE 61; RESP 17; O2SAT 99
--- NOTE | 2017-10-18 09:24 | RADRPT ---
EXAM DATE: 10/18/2017 9:17 AM EDT AGE/SEX: 62 years / Male INDICATIONS: Left pleural effusion. CLINICAL DATA: This is the patient's subsequent encounter. Patient reports that signs and symptoms h ave been present for 4 - 6 months and indicates a pain score of 0/10. MEDICAL/SURGICAL HISTORY: . Left lung cancer. Hypercholesterolemia. Hypertension. Gastroesophag eal reflux disease. Left pleural effusion. . Tonsillectomy. CABG. Thoracentesis. [place] [facility] [place]/27/2017. . FLUID: Total volume of 1,250 cc of clear, red fluid was removed. Fluid was discarded. Thoracentesis was therapeutic only. . . TECHNIQUE: Ultrasound guidance for thoracentesis. Thoracentesis. The risks, benefits, and alternatives to ultrasound guided thoracentesis were explained to the patien t in lay simple terms, including the risk of bleeding and infection. Written and verbal informed con sent was obtained. Appropriate area for left thoracentesis was marked under ultrasound guidance with the patient in the upright position. Overlying skin was prepped and draped in the usual sterile fashion and with local anesthetic, a dermatotomy was made with an 11 blade scalpel. A 6 Lao thoracentesis catheter was p laced in the pleural space and fluid was removed. Catheter was then removed and a sterile dressing a pplied. There were no immediate complications. The patient tolerated the procedure well and the left the ultrasound suite in stable condition. Chest radiograph is to be obtained. FINDINGS: Ultrasound imaging documents a large simple appearing left pleural effusion. CONCLUSION: Uncomplicated left thoracentesis, as above. Electronically signed by: Alex Chapa MD 10/18/2017 9:23 AM EDT
== END 2017-10-18 09:30 | disposition home or self-care (01) ==
LOC: HRAD 07:51 → HRIP 07:55 → HRAD 09:30
PROVIDERS: ATTEND Internal Medicine Hematology & Oncology
DX: J90 Pleural effusion, not elsewhere classified (principal); I10 Essential (primary) hypertension; K21.9 Gastro-esophageal reflux disease without esophagitis; E78.00 Pure hypercholesterolemia, unspecified; Z95.1 Presence of aortocoronary bypass graft
CPT/HCPCS: 32555; 71045; C1729